=== PATIENT | female | born 1960 | race Caucasian/White ===

== ENCOUNTER 2018-03-12 13:11 | Emergency (ER) | payer BC ==
[2018-03-12 13:29] VITALS: BP 115/65
--- NOTE | 2018-03-12 14:15 | UC ---
UC General HPI - HPI Summary HPI Summary: pt stubbed her L great toe on a step 9 days ago. great toe was bruised. top of L great toe into foot is now red, warm and tender. no fever or hx DM. - History of Current Complaint Chief Complaint: UCTrauma Stated Complaint: SP FALL-RT SHOULDER, LT FOOT PAIN Time Seen by Provider: 03/12/18 13:57 Hx Obtained From: Patient Hx Last Menstrual Period: FES2012, GOING THRU MENOPAUSE Pain Intensity: 3 Associated Signs & Symptoms: Negative: Fever - Allergy/Home Medications Allergies/Adverse Reactions: Allergies Allergy/AdvReac Type Severity Reaction Status Date / Time No Known Allergies Allergy Verified 03/12/18 13:29 Home Medications: Home Medications Atorvastatin* [Lipitor*] 20 mg PO 1700 03/12/18 [History Confirmed 03/12/18] PMH/Surg Hx/FS Hx/Imm Hx Endocrine History: Dyslipidemia - Surgical History Surgical History: Yes Surgery Procedure, Year, and Place: C SECTION - Family History Known Family History: Positive: Non-Contributory - Social History Alcohol Use: Occasionally Substance Use Type: None Substance Use Comment - Amount & Last Used: occasional use- last used 2 days ago Smoking Status (MU): Former Smoker When Did the Patient Quit Smoking/Using Tobacco: 2006 - Immunization History Vaccination Up to Date: Yes Review of Systems All Other Systems Reviewed And Are Negative: Yes Constitutional: Positive: Negative Skin: Positive: Negative Eyes: Positive: Negative ENT: Positive: Negative Respiratory: Positive: Negative Cardiovascular: Positive: Negative Gastrointestinal: Positive: Negative Genitourinary: Positive: Negative Motor: Positive: Negative Neurovascular: Positive: Negative Musculoskeletal: Positive: Other: - L foot pain/swelling Neurological: Positive: Negative Psychological: Positive: Negative Is Patient Immunocompromised?: Yes Physical Exam Triage Information Reviewed: Yes Appearance: Well-Appearing Vital Signs: Initial Vital Signs Temp 97.3 F 03/12/18 13:26 Pulse 59 03/12/18 13:26 Resp 16 03/12/18 13:26 BP 115/65 03/12/18 13:26 Pulse Ox 97 03/12/18 13:26 Vital Signs Reviewed: Yes Eyes: Positive: Conjunctiva Clear ENT: Positive: Normal ENT inspection Neck: Positive: Supple Respiratory: Positive: Lungs clear, Normal breath sounds Cardiovascular: Positive: RRR, No Murmur Abdomen Description: Positive: Nontender, No Organomegaly, Soft Bowel Sounds: Positive: Present Musculoskeletal: Positive: Other: - L foot: brusing under L great proximal toenail. top of great toe into dorsal foot is pink, warm and slightly swollen. area mildly tender. foot has gorss s/v/m function. Neurological: Positive: Alert Psychological: Positive: Age Appropriate Behavior Skin Exam: Normal Diagnostics - Radiology No standard instances Radiology Interpretation Completed By: Radiologist - L foot: QUESTIONABLE LONGITUDINALLY ORIENTED NONDISPLACED FRACTURE OF THE PROXIMAL PHALANX OF THE FIRST DIGIT Course/Dx - Diagnoses Provider Diagnosis: Toe fracture, left, Cellulitis Discharge - Sign-Out/Discharge Documenting (check all that apply): Patient Departure All imaging exams completed and their final reports reviewed: Yes - Discharge Plan Condition: Stable Disposition: HOME Prescriptions: Cephalexin CAP* [Keflex CAP*] 500 mg PO TID 10 Days #30 cap Patient Education Materials: Cellulitis (ED), Toe Fracture (ED) Referrals: Rian Koenig MD [Medical Doctor] - 2 Days Additional Instructions: DIAGNOSIS: FRACTURE L GREAT TOE. CELLULITIS L FOOT - Billing Disposition and Condition Condition: STABLE Disposition: Home
== END 2018-03-12 15:02 | disposition home or self-care (01) ==
LOC: UCCORT 13:11
DX: S92.412A Displaced fracture of proximal phalanx of left great toe, initial encounter for closed fracture (principal); W22.09XA Striking against other stationary object, initial encounter; Y92.9 Unspecified place or not applicable; L03.032 Cellulitis of left toe; E78.5 Hyperlipidemia, unspecified; Z87.891 Personal history of nicotine dependence
CPT/HCPCS: 99203; G0463

== ENCOUNTER 2018-06-30 08:59 | Emergency (ER) | payer BC ==
[2018-06-30 09:18] VITALS: BP 121/77
--- NOTE | 2018-06-30 09:19 | UC ---
Back Pain HPI - HPI Summary HPI Summary: Patient is a 58-year-old female with the onset of spasmodic thoracic back pain that started yesterday. She has taken Flexeril without relief. She denies any neck pain. She denies any radiation of the pain. She has not taken any over- the-counter analgesics. She denies any weakness, numbness, or neck pain. Her pain increases if she tries to do anything with her arms. She noticed this especially attempting to mop yesterday. She has not had any falls. - History of Current Complaint Chief Complaint: UCBackPain Stated Complaint: BACK PAIN Time Seen by Provider: 06/30/18 09:18 Hx Obtained From: Patient Hx Last Menstrual Period: 2012, GOING THRU MENOPAUSE Onset/Duration: Gradual Onset, Lasting Hours Timing: Constant Severity Initially: Moderate Severity Currently: Moderate Pain Intensity: 7 Pain Scale Used: 0-10 Numeric Back Pain: Is Discrete @ - see image Character: Aching, Throbbing, Spasmodic Aggravating Factor(s): Movement, Lifting, Bending Alleviating Factor(s): Rest Associated Signs And Symptoms: Negative: Swelling, Redness, Bruising, Fever, Weakness, Numbness, Tingling, Abdominal Pain, Flank Pain, Bladder Incontinence, Bowel Incontinence, Weight Loss, Pain with Weight Bearing Full Body (No Head): 1 - tender - Allergies/Home Medications Allergies/Adverse Reactions: Allergies Allergy/AdvReac Type Severity Reaction Status Date / Time No Known Allergies Allergy Verified 06/30/18 09:16 Home Medications: Home Medications Cyclobenzaprine TAB* [Flexeril 10 MG TAB*] 10 mg PO BID PRN 06/30/18 [History Confirmed 06/30/18] PMH/Surg Hx/FS Hx/Imm Hx Previously Healthy: Yes - Surgical History Surgical History: Yes Surgery Procedure, Year, and Place: C SECTION - Family History Known Family History: Positive: Hypertension, Diabetes, Other - [place], Non- Contributory - Social History Alcohol Use: Weekly Substance Use Type: Marijuana Substance Use Comment - Amount & Last Used: occasional use- last used 2 days ago Smoking Status (MU): Former Smoker When Did the Patient Quit Smoking/Using Tobacco: 2006 - Immunization History Vaccination Up to Date: Yes Review of Systems All Other Systems Reviewed And Are Negative: Yes Constitutional: Positive: Negative Skin: Positive: Negative Eyes: Positive: Negative ENT: Positive: Negative Respiratory: Positive: Negative Cardiovascular: Positive: Negative Gastrointestinal: Positive: Negative Genitourinary: Positive: Negative Motor: Positive: Negative Musculoskeletal: Positive: Myalgia - thoracic Neurological: Positive: Negative Psychological: Positive: Negative Physical Exam Triage Information Reviewed: Yes Appearance: Well-Appearing, No Pain Distress, Well-Nourished Vital Signs: Initial Vital Signs Temp 97.1 F 06/30/18 09:14 Pulse 61 06/30/18 09:14 Resp 16 06/30/18 09:14 BP 121/77 06/30/18 09:14 Pulse Ox 99 06/30/18 09:14 Eyes: Positive: Conjunctiva Clear ENT: Positive: Hearing grossly normal. Negative: Nasal congestion, Nasal drainage, Tonsillar swelling, Tonsillar exudate, Trismus, Muffled voice, Hoarse voice Neck: Positive: Supple, Nontender, No Lymphadenopathy Respiratory: Positive: Lungs clear, Normal breath sounds, No respiratory distress Cardiovascular: Positive: RRR, No Murmur Musculoskeletal: Positive: ROM Intact, No Edema Neurological: Positive: Alert, Muscle Tone Normal Psychological Exam: Normal Skin Exam: Normal Back Pain Course/Dx - Differential Dx/Diagnosis Provider Diagnosis: Thoracic myofascial strain Discharge - Sign-Out/Discharge Documenting (check all that apply): Patient Departure All imaging exams completed and their final reports reviewed: No Studies - Discharge Plan Condition: Stable Disposition: HOME Patient Education Materials: Thoracic Pain (ED), Thoracic Back Strain (ED) Referrals: Teresa Yarbrough MD [Primary Care Provider] - 5 Days (if not better) - Billing Disposition and Condition Condition: STABLE Disposition: Home
[2018-06-30] MEDS ORDERED: Ketorolac INJ* 30 MG/ML 1 ML VIAL IM ONE (09:30)
== END 2018-06-30 09:49 | disposition home or self-care (01) ==
LOC: UCCORT 08:59
DX: S29.012A Strain of muscle and tendon of back wall of thorax, initial encounter (principal); Z87.891 Personal history of nicotine dependence; X58.XXXA Exposure to other specified factors, initial encounter; Y92.9 Unspecified place or not applicable
CPT/HCPCS: 96372; 99212; G0463; J1885

== ENCOUNTER 2018-10-08 13:20 | Emergency (ER) | payer BC ==
--- OUTSIDE RECORDS SUMMARY | 2018-10-08 13:35 | XMS REPORT | Continuity of Care Document ---
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 Payers Date Identification Numbers Payment Provider Subscriber Policy Number: [id number] [employer] [place] PayID: [id number] [address] [address] [place] [address] Problems Active Problems Provider Date FH: Diabetes mellitus Teresa Yarbrough MD Onset: 02/02/2014 Family history of breast cancer Teresa Yarbrough MD Onset: 05/24/2011 Osteochondropathy Teresa Yarbrough MD Onset: 11/16/2010 Benign neoplasm of colon Teresa Yarbrough MD Onset: 11/16/2010 Vitamin D deficiency Teresa Yarbrough MD Onset: 11/16/2010 Ex-smoker Teresa Yarbrough MD Onset: 05/18/2010 Dyssomnia Teresa Yarbrough MD Onset: 12/07/2006 Mixed hyperlipidemia Teresa Yarbrough MD Onset: 12/07/2006 Degenerative joint disease involving multiple Teresa Yarbrough MD Onset: joints Disorder of bone Teresa Yarbrough MD Onset: 02/04/2015 Actinic keratosis Teresa Yarbrough MD Onset: 08/06/2015 Family History Date Family Member(s) Observation Comments Father due to Aneurysm, Cerebral () - due to Aneurysm - brain bleeds, Father Hypercholesterolemia Father aortic valve disease, replaced. Father due to Stroke () Father due to COPD () Mother due to Cancer, Breast () - (age 60 Years) mets to bone Mother Hypercholesterolemia Mother Hypertension Mother Diabetes Mellitus, II, Mother Mitral Valve Disease, Replaced First Daughter No Current Problems First Brother Diabetes Mellitus, II Second Brother Diabetes Mellitus, II First Sister COPD First Sister Diabetes Mellitus, II. 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 [employer] Tobacco Use Start: 04/16/74 Former Cigarette Smoker started age 15, End: 04/16/07 smoked 1/2 to 1 ppd, quit age 47, in 2007, feels she smoked 1ppd from age 21s through age 47, 1/2 ppd when , calculates to about 28 pack years, not over the 30pack year eligibility for lung cancer screening, reviewed 08/10/17 [facility] [place] Status Reviewed: 03/26/18 Former Cigarette Smoker started age 15, smoked 1/2 to 1 ppd, quit age 47, in 2007, feels she smoked 1ppd from age 20s through age 47, 1/2 ppd when , calculates to about 28 pack years, not over the 30pack year eligibility for lung cancer screening, reviewed 08/10/17 [facility] [place]TOH Use Currently consumes 12 pack/week alcohol Tobacco Use Start: Unknown End: Patient is a former quit again 04/23 Unknown smoker Recreational Drug Use Current Drug User Current Drug User - marijuana, occasionally, advised cessation 02/04/15 Allergies, Adverse Reactions, Alerts Description No Known Drug Allergies Medications Active Medications SIG Qnty Indications Ordering Provider Date Wrist size to fit, M79.641 Teresa Yarbrough, 09/24/2018 Splint/Cock-Up/RIGHT/C wear at night anvas/X-Large Misc Black Cohosh 1 by mouth every Teresa Yarbrough, 08/10/2017 540mg day Capsules Atorvastatin Calcium take 1 tablet 30tabs E78.2 Teresa Yarbrough, 2011 20mg once daily MD Tablets History Medications Potassium Chloride 2 Times A Day 10tabs Unknown 07/12/2018 - Aria ER 07/17/2018 20Meq Tablets ER Green Tea bid Teresa Yarbrough, 08/10/2017 - 150mg MD 07/14/2018 Capsules Green Coffee Horowitz bid Teresa Yarbrough, 08/10/2017 - MD 07/14/2018 400mg Capsules Naproxen 1 by mouth 60tabs M25.561 Teresa Yarbrough, 04/23/2017 - 500mg twice a day MD 07/14/2018 Tablets with food M25.562 Benzonatate 1 by mouth 30caps J06.9 Teresa Yarbrough, 02/27/2017 - 200mg three times a MD 03/09/2017 Capsules day as needed Glucosamine 1 po twice M15.0 Teresa Yarbrough, 08/15/2016 - Chondroitin Triple daily with 16 MD 08/10/2017 Strength oz water 1500/750 Tablets [place]-3 1 po 1-2 times M15.0 Teresa Yarbrough, 08/15/2016 - 1000mg Capsules daily MD 08/10/2017 Metronidazole 1 by mouth 8tabs K57.92 Teresa Yarbrough, 02/07/2016 - 500mg twice a day MD 02/11/2016 Tablets Vitamin D 1 by mouth 1caps E55.9 Teresa Yarbrough, 08/06/2015 - (Ergocalciferol) each month MD 07/14/2018 with 23538Nkig Capsules meat/fat/oil Ciprofloxacin HCL 1 by mouth 20tabs 789.04 Teresa Yarbrough, 12/04/2014 - 500mg twice a day MD 12/14/2014 Tablets Metronidazole 1 by mouth 20tabs 789.04 Teresa Yarbrough, 12/04/2014 - 500mg twice a day MD 12/14/2014 Tablets Amoxicillin/Clavulana 1 by mouth 28tabs 706.2 Bobo Prater, 2014 - te Potassium twice a day 10/26/2014 875-125mg Tablets Fish Oil 1 by mouth OTC 715.09 Teresa Yarbrough, 08/04/2014 - 1000mg every day MD 08/14/2014 Capsules Glucosamine 1 by mouth 180tabs 715.09 Teresa Yarbrough, 08/04/2014 - Chondroitin Complex twice a day MD 08/14/2014 Triple Strength with 16 oz water 1500/1200 Tablets Vitamin D3 Super 1 by mouth OTC E55.9 Teresa Yarbrough, 08/04/2012 - Strength every day with 08/06/2015 2000Unit main meal with Tablets meat/fat/oil Atorvastatin Calcium 1 by mouth 30tabs E78.2 Teresa Yarbrough, 11/20/2011 - every day 03/25/2018 20mg Tablets Eszopiclone per dr yoli [place], [place] Eleuterio 11/14/2006 - 3mg Tablets 05/06/2013 Estroven Weight 1 cap daily Unknown - Management 08/15/2016 Capsules Immunizations CPT Code Status Date Vaccine Lot # [id number] Given 12/23/2012 Tdap (Adacel) Ages 7 And Above Only [id number] Given 10/08/2002 Immunization Td 7 Yrs Or Older [id number] Refused 03/26/2018 Flu Vaccine NOS [id number] Refused 03/26/2018 Shingrix (Shingles) Zoster Vaccine HZV, Recombinant , Subunit, Adj [id number] Refused 08/10/2017 Influenza Virus Vaccine,Quadrivalent,Split,Preserv Free, 0.5mL,Im [address] Refused 02/04/2015 Influenza Virus Vaccine,Quadrivalent,Split,Preserv Free, 0.5mL,[place] [id number] Refused 07/14/2014 Influenza Virus Vaccine,Quadrivalent,Split,Preserv Free, 0.5mL,Im Vital Signs Date Vital Result Comment 09/24/2018 2:40pm Weight 184.00 lb Heart Rate 60 /min BP Systolic 112 mmHg BP Diastolic 68 mmHg Respiratory Rate 17 /min Height 65.5 inches 5'5.50" BMI (Body Mass Index) 30.2 kg/m2 07/15/2018 2:40pm Weight 186.00 lb Heart Rate 62 /min BP Systolic 130 mmHg BP Diastolic 72 mmHg Respiratory Rate 16 /min Height 65.5 inches 5'5.50" O2 % BldC Oximetry 97 % Ra BMI (Body Mass Index) 30.5 kg/m2 03/26/2018 11:05am Body Temperature 97.2 F Weight 182.00 lb Heart Rate 57 /min BP Systolic 118 mmHg BP Diastolic 74 mmHg Respiratory Rate 14 /min Height 65.5 inches 5'5.50" O2 % BldC Oximetry 97 % ra BMI (Body Mass Index) 29.8 kg/m2 08/10/2017 8:31am Weight 184.44 lb Heart Rate 68 /min BP Systolic 108 mmHg BP Diastolic 60 mmHg Respiratory Rate 18 /min Height 66 inches 5'6" BMI (Body Mass Index) 29.8 kg/m2 04/23/2017 2:12pm Weight 191.00 lb Heart Rate 84 /min BP Systolic 128 mmHg BP Diastolic 76 mmHg Respiratory Rate 14 /min Height 65.75 inches 5'5.75" BMI (Body Mass Index) 31.1 kg/m2 02/27/2017 10:55am Body Temperature 98.6 F Weight 192.00 lb Heart Rate 57 /min BP Systolic 126 mmHg BP Diastolic 72 mmHg Respiratory Rate 16 /min Height 65.75 inches 5'5.75" O2 % BldC Oximetry 96 % BMI (Body Mass Index) 31.2 kg/m2 02/07/2017 4:11pm Weight 191.00 lb Heart Rate 74 /min BP Systolic 128 mmHg BP Diastolic 72 mmHg Respiratory Rate 16 /min Height 65.75 inches 5'5.75" BMI (Body Mass Index) 31.1 kg/m2 11/01/2016 4:33pm Body Temperature 97.1 F Weight 191.00 lb Heart Rate 63 /min BP Systolic 128 mmHg BP Diastolic 72 mmHg Respiratory Rate 16 /min Height 65.75 inches 5'5.75" 08/15/16 O2 % BldC Oximetry 97 % BMI (Body Mass Index) 31.1 kg/m2 08/15/2016 8:36am Weight 192.00 lb Heart Rate 76 /min BP Systolic 122 mmHg BP Diastolic 72 mmHg Respiratory Rate 18 /min Height 65.75 inches 5'5.75" 08/15/16 BMI (Body Mass Index) 31.2 kg/m2 02/07/2016 9:46am Body Temperature 97.9 F Weight 191.00 lb Heart Rate 76 /min BP Systolic 126 mmHg BP Diastolic 74 mmHg Respiratory Rate 12 /min Height 65.75 inches 5'5.75" 02/07/16 BMI (Body Mass Index) 31.1 kg/m2 08/06/2015 9:10am Weight 188.38 lb Heart Rate 66 /min BP Systolic 122 mmHg BP Diastolic 72 mmHg Respiratory Rate 18 /min Height 65.75 inches 5'5.75" BMI (Body Mass Index) 30.6 kg/m2 06/21/2015 10:01am Weight 187.00 lb Heart Rate 64 /min BP Systolic 118 mmHg L/Reg BP Diastolic 68 mmHg L/Reg Respiratory Rate 16 /min Height 65.75 inches 5'5.75" BMI (Body Mass Index) 30.4 kg/m2 02/04/2015 8:28am Weight 187.00 lb Heart Rate 66 /min BP Systolic 136 mmHg L/Reg BP Diastolic 82 mmHg L/Reg Respiratory Rate 17 /min Height 65.75 inches 5'5.75" BMI (Body Mass Index) 30.4 kg/m2 12/08/2014 9:01am Weight 186.00 lb Heart Rate 74 /min BP Systolic 120 mmHg BP Diastolic 80 mmHg Respiratory Rate 18 /min Height 65.5 inches 5'5.50" BMI (Body Mass Index) 30.5 kg/m2 12/04/2014 1:02pm Body Temperature 97.3 F Weight 186.00 lb Heart Rate 72 /min BP Systolic 122 mmHg BP Diastolic 80 mmHg Respiratory Rate 18 /min Height 65.5 inches 5'5.50" BMI (Body Mass Index) 30.5 kg/m2 10/12/2014 1:27pm Body Temperature 98.0 F Weight 187.00 lb Heart Rate 68 /min BP Systolic 140 mmHg BP Diastolic 70 mmHg Respiratory Rate 18 /min Height 65.5 inches 5'5.50" BMI (Body Mass Index) 30.6 kg/m2 08/04/2014 8:38am Weight 188.00 lb Same Heart Rate 70 /min BP Systolic 110 mmHg R/Reg BP Diastolic 70 mmHg R/Reg Respiratory Rate 17 /min Height 66 inches 5'6" BMI (Body Mass Index) 30.3 kg/m2 02/02/2014 3:35pm Weight 188.00 lb Heart Rate 72 /min BP Systolic 130 mmHg BP Diastolic 80 mmHg Respiratory Rate 18 /min Height 66 inches 5'6" 09/09/2013 4:37pm Body Temperature 97.5 F Weight 182.00 lb Heart Rate 64 /min BP Systolic 120 mmHg BP Diastolic 60 mmHg Respiratory Rate 18 /min Height 66 inches 5'6" 06/23/2013 8:37am Weight 185.00 lb Heart Rate 64 /min BP Systolic 124 mmHg BP Diastolic 70 mmHg Respiratory Rate 16 /min Height 66 inches 5'6" 01/15/2013 1:00pm Weight 185.00 lb Heart Rate 76 /min BP Systolic 118 mmHg BP Diastolic 74 mmHg Respiratory Rate 18 /min 01/08/2013 10:34am Weight 186.00 lb Heart Rate 76 /min BP Systolic 118 mmHg BP Diastolic 78 mmHg Respiratory Rate 18 /min 12/23/2012 11:13am Weight 186.00 lb Heart Rate 76 /min BP Systolic 122 mmHg BP Diastolic 74 mmHg Respiratory Rate 18 /min Height 65.75 inches 5'5.75" 12/09/2012 1:10pm Weight 185.00 lb Heart Rate 72 /min BP Systolic 118 mmHg BP Diastolic 72 mmHg Respiratory Rate 18 /min 12/02/2012 10:10am Weight 183.00 lb Heart Rate 60 /min BP Systolic 148 mmHg BP Diastolic 78 mmHg Respiratory Rate 17 /min 05/20/2012 9:00am Weight 192.00 lb Heart Rate 60 /min BP Systolic 124 mmHg BP Diastolic 72 mmHg Respiratory Rate 18 /min 02/15/2012 9:31am Weight 190.00 lb Heart Rate 64 /min BP Systolic 118 mmHg BP Diastolic 70 mmHg Respiratory Rate 17 /min 12/04/2011 4:45pm Body Temperature 98.3 F Weight 189.00 lb BP Systolic 100 mmHg BP Diastolic 70 mmHg 11/20/2011 1:20pm Weight 187.00 lb Heart Rate 64 /min BP Systolic 118 mmHg BP Diastolic 72 mmHg Respiratory Rate 15 /min 08/25/2011 8:55am Weight 186.00 lb Heart Rate 64 /min BP Systolic 118 mmHg BP Diastolic 70 mmHg Respiratory Rate 16 /min Height 65.75 inches 5'5.75" (Done On 05/24/11) 07/13/2011 10:08am Weight 189.00 lb Heart Rate 72 /min BP Systolic 106 mmHg BP Diastolic 70 mmHg Respiratory Rate 16 /min Height 65.75 inches 5'5.75" 05/24/2011 8:37am Weight 188.00 lb Heart Rate 78 /min BP Systolic 114 mmHg BP Diastolic 62 mmHg Respiratory Rate 18 /min Height 65.75 inches 5'5.75" 11/16/2010 8:33am Weight 185.00 lb Heart Rate 72 /min BP Systolic 120 mmHg BP Diastolic 72 mmHg Respiratory Rate 18 /min 07/19/2010 8:42am Weight 188.00 lb Heart Rate 72 /min BP Systolic 126 mmHg BP Diastolic 78 mmHg Respiratory Rate 18 /min 05/18/2010 9:01am Weight 190.00 lb Heart Rate 72 /min BP Systolic 112 mmHg BP Diastolic 70 mmHg Respiratory Rate 18 /min Height 66 inches 5'6" 07/08/2009 1:46pm Weight 182.00 lb Heart Rate 72 /min BP Systolic 122 mmHg BP Diastolic 74 mmHg Respiratory Rate 18 /min 05/12/2009 8:30am Weight 188.00 lb Heart Rate 72 /min BP Systolic 118 mmHg BP Diastolic 66 mmHg Respiratory Rate 16 /min Height 66 inches 5'6" 10/28/2008 11:08am Weight 180.00 lb Heart Rate 63 /min BP Systolic 128 mmHg BP Diastolic 80 mmHg Respiratory Rate 16 /min 02/03/2008 3:26pm Body Temperature 99.0 F Weight 176.19 lb Heart Rate 68 /min BP Systolic 118 mmHg BP Diastolic 62 mmHg Respiratory Rate 14 /min Height 66 inches 5'6" 12/02/2007 4:46pm Body Temperature 98.0 F Weight 170.12 lb Heart Rate 72 /min BP Systolic 120 mmHg BP Diastolic 74 mmHg Respiratory Rate 18 /min Height 66 inches 5'6" 10/23/2007 9:03am Weight 175.00 lb Heart Rate 80 /min BP Systolic 118 mmHg BP Diastolic 60 mmHg Respiratory Rate 16 /min Height 66 inches 5'6" 07/31/2007 1:32pm Heart Rate 60 /min BP Systolic 104 mmHg BP Diastolic 66 mmHg Respiratory Rate 16 /min Height 66 inches 5'6" 04/24/2007 8:58am Weight 165.00 lb BP Systolic 100 mmHg BP Diastolic 60 mmHg Height 66 inches 5'6" 03/13/2007 3:36pm Weight 167.00 lb Heart Rate 80 /min BP Systolic 100 mmHg BP Diastolic 50 mmHg Respiratory Rate 18 /min Height 66 inches 5'6" 12/07/2006 2:51pm Weight 176.25 lb Heart Rate 78 /min BP Systolic 110 mmHg BP Diastolic 62 mmHg Respiratory Rate 16 /min Height 66 inches 5'6" Results Test Date Facility Test Result H/L Range Note LDL Cholesterol 09/21/2018 [facility] Cholesterol 191 mg/ dL <200 1, 2 Profile (315)- - Triglycerides 127 mg/dL <150 3 HDL Cholesterol 70 mg/dL >40 4 LDL-Cholesterol 96 mg/dL < 100 5 Laboratory test 09/21/2018 [facility] CK 117 U/L N 26- 192 finding (315)- - Laboratory test 09/21/2018 [facility] Vitamin 32.3 ng/mL 30.0-100.0 6 finding (315)- - D,25-Hydroxy BMP W/ Calc Osmo 08/02/2018 [facility] Sodium 144 mmol/L (136-145) 7 Potassium 4.1 mmol/L (3.6-5.2) Chloride 110 mmol/L High (100-108) Co2 26 mmol/L (22-31) Anion Gap 8 mmol/L (7-16) Urea Nitrogen 13 mg/dL (7-24) Creatinine 0.82 mg/dL (0.60-1.00) BUN/Creat Ratio 15.9 RATIO (10.0-20.0) Glucose 96 mg/dL (70-99) Calcium 9.0 mg/dL (8.4-10.2) GFR >60 ml/min/1.73m2 (>59) GFR ( Amer) >60 ml/min/1.73m2 (>59) GFR Interpretation (SEE NOTE) 8 Calculated Osmo 287 mosm/kg (280-300) 9 Laboratory test finding 07/15/2018 [facility] Potassium 4.1 mmol/L 3.5-5.2 10 TSH 3.67 uIU/mL 0.35-4.94 Free T4 0.96 ng/dL 0.70-1.48 CBS W/Automated Diff 07/12/2018 [facility] White Blood 6.0 K/uL N 3.1-10.7 11 (315)- - Count Red Blood Count 4.08 M/uL N 3.90-5.40 Hemoglobin 12.6 gm/dL N 11.6-15.8 Hematocrit 36.6 % N 36.0-46.1 Mean Cell Volume 89.7 fl N 80.9-99.0 Mean Corpuscular HGB 30.9 pg N 25.9-32.7 Mean Corpuscular HGB Conc 34.4 g/dL High 30.8-34.3 Platelet Count 175 K/uL N 155-360 Red Cell Distri Width SD 40.7 fl N 36-47 Red Cell Distri Width %CV 12.5 % N 11.7-14.4 Mean Platelet Volume 11.0 fl N 8.9-12.4 Neut% 48.8 % N 40.4-72.8 Lymph % 37.0 % N 20.0-42.0 [place] % 11.1 % N 4.3-13.2 Eo% 2.3 % N 0.0-6.6 Bas% 0.5 % N 0.0-1.1 Immature Grans 0.3 % N 0.0-5.0 NRBC % 0.0 /100WBC < 10/ 100 WBC Neut# 2.91 K/uL N 1.8-7.0 Lymph # 2.21 K/uL N 1.0-4.0 [place] # 0.66 K/uL N 0.3-0.9 Eos # 0.14 K/uL N 0.0-0.5 Baso # 0.03 K/uL N 0.0-0.1 Immature Grans Absolute 0.02 K/uL NRBC # 0.00 K/uL Comprehensive Metabolic 07/12/2018 [facility] Glucose 180 mg/dL High 74-106 Panel (315)- - BUN 18 mg/dL N 7-18 Creatinine 1.0 mg/dL N 0.6-1.3 Glom Filtration Rate, Estimate >60 mL/min >60 If >60 mL/min >60 12 BUN/Creat 18.0 ratio Sodium 138 mmol/L N 136-145 Potassium 3.0 mmol/L Low 3.5-5.1 Chloride 107 mmol/L N 98-107 Carbon Dioxide 25 mmol/L N 21-32 Anion Gap 6 mEq/L Low 8-16 Calcium 8.6 mg/dL N 8.5-10.1 Total Protein 7.4 g/dL N 6.4-8.2 Albumin 4.0 g/dL N 3.4-5.0 Globulin 3.4 g/dL N 1.9-4.3 Alb/Glob 1.2 ratio Bilirubin,Total 1.0 mg/dL N 0.2-1.0 Sgot/Ast 20 U/L N 15-37 SGPT/Alt 28 U/L N 12-78 Alkaline Phosphatase 120 U/L High 45-117 Laboratory test 07/12/2018 [facility] Troponin-I < 0.015 ng/mL 13 finding (315)- - Lipid 02/02/2018 [facility] Cholesterol 194 mg/dL < 200 14 (315)- - Triglycerides 88 mg/dL <150 15 HDL Cholesterol 70 mg/dL >40 16 LDL-Cholesterol 106 mg/dL < 100 17 Comprehensive Met 02/02/2018 [facility] Glucose 93 mg/dL N 74-106 Panel-[facility] (315)- - BUN 15 mg/dL N 7-18 Creatinine 1.0 mg/dL N 0.6-1.3 Glom Filtration Rate, Estimate >60 mL/min >60 If >60 mL/min >60 18 BUN/Creat 15.0 ratio Sodium 142 mmol/L N 136-145 Potassium 4.1 mmol/L N 3.5-5.1 Chloride 110 mmol/L High 98-107 Carbon Dioxide 28 mmol/L N 21-32 Anion Gap 4 mEq/L Low 8-16 Calcium 9.0 mg/dL N 8.5-10.1 Total Protein 7.4 g/dL N 6.4-8.2 Albumin 4.0 g/dL N 3.4-5.0 Globulin 3.4 g/dL N 1.9-4.3 Alb/Glob 1.2 ratio Bilirubin,Total 1.2 mg/dL High 0.2-1.0 Sgot/Ast 19 U/L N 15-37 SGPT/Alt 28 U/L N 12-78 Alkaline Phosphatase 93 U/L N 45-117 Laboratory test 02/02/2018 [facility] CK 134 U/L N 26- 192 finding (315)- - Lipid 08/06/2017 [facility] Cholesterol 206 mg/dL High 50-199 19 Triglycerides 176 mg/dL 30-200 HDL 70 mg/dL 35-85 20 Chol/ HDL Ratio 2.9 ratio Low 3.7-5.6 VLDL 35 mg/dL High 2-29 LDL (Calc) 101 mg/dL High 20-99 21 Laboratory test finding 08/06/2017 [facility] Vitamin D 25 36 ng/mL 30-100 22 Hydroxy Comprehensive Met 08/06/2017 [facility] Sodium 144 mmol/L 135-146 23 Panel-[facility]G Potassium 4.2 mmol/L 3.5-5.2 Chloride# 107 mmol/L 97-110 24 Carbon Dioxide 27 mmol/L 24-34 Glucose 86 mg/dL 70-105 BUN 18 mg/dL 6-26 Creatinine 1.0 mg/dL 0.5-1.4 Calcium 9.4 mg/dL 8.5-10.2 Total Protein 6.9 g/dL 6.0-8.0 Albumin 4.5 g/dL 3.6-4.9 Globulin 2.4 g/dL 2.0-3.5 A/G Ratio 1.9 Ratio 1.0-2.2 Total Bilirubin 1.0 mg/dL 0.1-1.3 Alkaline Phosphatase 91 U/L 24-140 Alt 16 U/L 3-42 Ast 17 U/L 8-42 Natacha Egfr >60 >60 25 Non Natacha Egfr 57 Low >60 26 Anion Gap 10 mmol/L 5-15 27 CMP, Comp Metabolic 01/27/2017 [facility] Glucose 92 mg/ dL N 74-106 28 Panel-RL (315)- - BUN 19 mg/dL High 7-18 Creatinine 0.9 mg/dL N 0.6-1.3 Glom Filtration Rate, Estimate >60 mL/min >60 If >60 mL/min >60 29 BUN/Creat 21.1 ratio Sodium 142 mmol/L N 136-145 Potassium 4.1 mmol/L N 3.5-5.1 Chloride 111 mmol/L High 98-107 Carbon Dioxide 25 mmol/L N 21-32 Anion Gap 6 mEq/L Low 8-16 Calcium 9.1 mg/dL N 8.5-10.1 Total Protein 7.5 g/dL N 6.4-8.2 Albumin 4.0 g/dL N 3.4-5.0 Globulin 3.5 g/dL N 1.9-4.3 Alb/Glob 1.1 ratio Bilirubin,Total 0.9 mg/dL N 0.2-1.0 Sgot/Ast 16 U/L N 15-37 SGPT/Alt 23 U/L N 12-78 Alkaline Phosphatase 116 U/L N 45-117 Lipid Panel 01/27/2017 [facility] Cholesterol 212 mg/dL High <200 30 (315)- - Triglycerides 117 mg/dL <150 31 HDL Cholesterol 77 mg/dL >40 32 LDL-Cholesterol 112 mg/dL < 100 33 Laboratory test 01/27/2017 [facility] Vitamin 32.8 ng/mL 30.0-100.0 34 finding (315)- - D,25-Hydroxy Hepatitis C Antibody < 0.1 s/corat 0.0-0.9 35 Comprehensive Metabolic (CMP) 08/01/2016 [facility] Sodium 143 mmol/L 135- 146 36 Potassium 4.5 mmol/L 3.5-5.2 Chloride# 107 mmol/L 97-110 37 Carbon Dioxide 28 mmol/L 24-34 Glucose 94 mg/dL 70-105 BUN 17 mg/dL 6-26 Creatinine 0.9 mg/dL 0.5-1.4 Calcium 9.5 mg/dL 8.5-10.2 Total Protein 6.8 g/dL 6.0-8.0 Albumin 4.5 g/dL 3.6-4.9 Globulin 2.3 g/dL 2.0-3.5 A/G Ratio 2.0 Ratio 1.0-2.2 Total Bilirubin 1.2 mg/dL 0.1-1.3 Alkaline Phosphatase 81 U/L 24-140 Alt 17 U/L 3-42 Ast 15 U/L 8-42 Natacha Egfr >60 >60 38 Non Natacha Egfr >60 >60 39 Anion Gap 13 mmol/L 7-16 40 Lipid 08/01/2016 [facility] Cholesterol 204 mg/dL High 50-199 Triglycerides 115 mg/dL 30-200 HDL 63 mg/dL 35-85 41 Chol/ HDL Ratio 3.2 ratio Low 3.7-5.6 VLDL 23 mg/dL 2-29 LDL (Calc) 118 mg/dL High 20-99 42 Laboratory test finding 08/01/2016 [facility] Vit D,25 Hydroxy 31 ng/mL 31- 100 Hepatitis C Virus Antibody NONREACTIVE Nonreactive Comprehensive Metabolic (CMP) 01/31/2016 [facility] Sodium 139 mmol/L 134- 142 Potassium 4.3 mmol/L 3.5-5.2 Chloride 107 mmol/L 97-109 Carbon Dioxide 24 mmol/L 24-34 Glucose 96 mg/dL 70-105 BUN 15 mg/dL 6-26 Creatinine 0.8 mg/dL 0.5-1.4 Calcium 9.7 mg/dL 8.5-10.2 Total Protein 6.8 g/dL 6.0-8.0 Albumin 4.3 g/dL 3.6-4.9 Globulin 2.5 g/dL 2.0-3.5 A/G Ratio 1.7 Ratio 1.0-2.2 Total Bilirubin 1.3 mg/dL 0.1-1.3 Alkaline Phosphatase 74 U/L 24-140 Alt 16 U/L 3-42 Ast 16 U/L 8-42 Anion Gap 12 mmol/L 6-14 Natacha Egfr >60 >60 43 Non Natacha Egfr >60 >60 44 Lipid 01/31/2016 [facility] Cholesterol 210 mg/dL High 50-199 Triglycerides 161 mg/dL 30-200 HDL 61 mg/dL 35-85 45 Chol/ HDL Ratio 3.4 ratio Low 3.7-5.6 VLDL 32 mg/dL High 2-29 LDL (Calc) 117 mg/dL High 20-99 46 Laboratory test finding 01/31/2016 [facility] Vit D,25 Hydroxy 34 ng/mL 31- 100 CBC With Auto Diff 01/31/2016 [facility] WBC 5.6 K/uL 4.1-11.0 RBC 4.52 M/uL 4.00-5.40 Hemoglobin 14.0 gm/dL 12.0-16.0 Hematocrit 40.6 % 36.0-47.0 MCV 89.7 fL 80.0-97.0 MCH 31.0 pg 27.0-32.0 MCHC 34.6 g/dL 32.0-36.0 RDW 12.6 % 11.5-14.5 PLT Count 180 K/ul 140-400 Neutrophil 52.9 % 35.0-75.0 Lymphocyte 34.0 % 16.0-52.0 Monocyte 9.1 % 2.0-10.0 Eosinophil 3.5 % 0.0-5.0 Basophil 0.5 % 0.0-4.0 Abs Neutrophils 3.0 K/uL 2.1-8.0 Abs Lymphocytes 1.9 K/uL 0.8-5.5 Abs Monocytes 0.5 K/uL 0.1-1.0 Abs Eosinophils 0.2 K/uL 0.0-0.5 Abs Basophils 0.0 K/uL 0.0-0.3 Lipid Panel 08/02/2015 [facility] Cholesterol 249 mg/dL High <200 47 (315)- - Triglycerides 221 mg/dL High <150 48 HDL Cholesterol 65 mg/dL >40 49 LDL-Cholesterol 140 mg/dL < 100 50 CMP, Comp Metabolic 08/02/2015 [facility] Glucose 99 mg/ dL 74-106 Panel (315)- - BUN 21 mg/dL High 7-18 Creatinine 0.9 mg/dL 0.6-1.3 Glom Filtration Rate, Estimate >60 mL/min >60 If >60 mL/min >60 51 BUN/Creat 23.3 ratio Sodium 139 mmol/L 136-145 Potassium 4.1 mmol/L 3.5-5.1 Chloride 106 mmol/L 98-107 Carbon Dioxide 27 mmol/L 21-32 Anion Gap 6 mEq/L Low 8-16 Calcium 9.6 mg/dL 8.5-10.1 Total Protein 7.5 g/dL 6.4-8.2 Albumin 4.0 g/dL 3.4-5.0 Globulin 3.5 g/dL 1.9-4.3 Alb/Glob 1.1 ratio Bilirubin,Total 1.5 mg/dL High 0.2-1.0 Sgot/Ast 17 U/L 15-37 SGPT/Alt 35 U/L 12-78 Alkaline Phosphatase 90 U/L 45-117 Laboratory 08/02/2015 [facility] Vitamin 27.9 ng/mL Low 30.0-100.0 52 test finding (315)- - D,25-Hydroxy Laboratory 06/21/2015 [facility] liche actin 53 test finding [facility] ker Laboratory 02/04/2015 [facility] HPV Laboratory ok 54 test finding [phone] [facility] <SEE NOTE> Laboratory 02/04/2015 [facility] Pap Smear Thin ok, yeast 55 test finding Prep Lipid 01/28/2015 [facility] Cholesterol 212 mg/dL High 50-199 Triglycerides 118 mg/dL 30-200 HDL 58 mg/dL 35-85 56 Chol/ HDL Ratio 3.7 ratio 3.7-5.6 VLDL 24 mg/dL 2-29 LDL (Calc) 130 mg/dL High 20-99 57 Xray 01/28/2015 [facility] Dexa Scan, osteopenia for [address] [place] [address] [phone] Comprehensive 01/28/2015 [facility] Sodium 139 mmol/L 134-1 Metabolic (CMP) 42 Potassium 4.3 mmol/L 3.5-5.2 Chloride 108 mmol/L 97-109 Carbon Dioxide 26 mmol/L 24-34 Glucose 96 mg/dL 70-105 BUN 16 mg/dL 6-26 Creatinine 0.8 mg/dL 0.5-1.4 Calcium 9.5 mg/dL 8.5-10.2 Total Protein 6.8 g/dL 6.0-8.0 Albumin 4.4 g/dL 3.6-4.9 Globulin 2.4 g/dL 2.0-3.5 A/G Ratio 1.8 Ratio 1.0-2.2 Total Bilirubin 1.0 mg/dL 0.1-1.3 Alkaline Phosphatase 83 U/L 24-140 Alt 21 U/L 3-42 Ast 18 U/L 8-42 Anion Gap 9 mmol/L 6-14 Natacha Egfr >60 >60 58 Non Natacha Egfr >60 >60 59 CBC With Auto Diff 01/28/2015 [facility] WBC 5.3 K/uL 4.1-11.0 RBC 4.45 M/uL 4.00-5.40 Hemoglobin 13.7 gm/dL 12.0-16.0 Hematocrit 40.4 % 36.0-47.0 MCV 90.8 fL 80.0-97.0 MCH 30.7 pg 27.0-32.0 MCHC 33.8 g/dL 32.0-36.0 RDW 12.8 % 11.5-14.5 PLT Count 174 K/ul 140-400 Neutrophil 55.4 % 35.0-75.0 Lymphocyte 32.3 % 16.0-52.0 Monocyte 9.2 % 2.0-10.0 Eosinophil 2.6 % 0.0-5.0 Basophil 0.5 % 0.0-4.0 Abs Neutrophils 2.9 K/uL 2.1-8.0 Abs Lymphocytes 1.7 K/uL 0.8-5.5 Abmon 0.5 K/uL 0.1-1.0 Abs Eosinophils 0.1 K/uL 0.0-0.5 Abs Basophils 0.0 K/uL 0.0-0.3 Laboratory test finding 01/28/2015 [facility] Vit D,25 Hydroxy 37 ng/mL 31- 100 CBC With Auto Diff 12/04/2014 [facility] WBC 6.7 K/uL 4.1-11.0 60 RBC 4.51 M/uL 4.00-5.40 Hemoglobin 14.3 gm/dL 12.0-16.0 Hematocrit 41.0 % 36.0-47.0 MCV 90.8 fL 80.0-97.0 MCH 31.6 pg 27.0-32.0 MCHC 34.8 g/dL 32.0-36.0 RDW 13.0 % 11.5-14.5 PLT Count 190 K/ul 140-400 Neutrophil 49.2 % 35.0-75.0 Lymphocyte 37.4 % 16.0-52.0 Monocyte 10.6 % High 2.0-10.0 Eosinophil 2.1 % 0.0-5.0 Basophil 0.7 % 0.0-4.0 Abs Neutrophils 3.3 K/uL 2.1-8.0 Abs Lymphocytes 2.5 K/uL 0.8-5.5 Abmon 0.7 K/uL 0.1-1.0 Abs Eosinophils 0.1 K/uL 0.0-0.5 Abs Basophils 0.0 K/uL 0.0-0.3 Comprehensive Metabolic (CMP) 12/04/2014 [facility] Sodium 140 mmol/L 134- 142 Potassium 4.2 mmol/L 3.5-5.2 Chloride 103 mmol/L 97-109 Carbon Dioxide 28 mmol/L 24-34 Glucose 84 mg/dL 70-105 BUN 18 mg/dL 6-26 Creatinine 0.8 mg/dL 0.5-1.4 Calcium 9.9 mg/dL 8.5-10.2 Total Protein 7.1 g/dL 6.0-8.0 Albumin 4.6 g/dL 3.6-4.9 Globulin 2.5 g/dL 2.0-3.5 A/G Ratio 1.8 Ratio 1.0-2.2 Total Bilirubin 1.2 mg/dL 0.1-1.3 Alkaline Phosphatase 89 U/L 24-140 Alt 16 U/L 3-42 Ast 14 U/L 8-42 Anion Gap 13 mmol/L 6-14 Natacha Egfr >60 >60 61 Non Natacha Egfr >60 >60 62 Laboratory test 10/08/2014 [facility] Polyp Colon hyperpl ,colitis 63 finding (315)- - And/Or Rectum Lipid 08/04/2014 [facility] Cholesterol 219 mg/dL High 50-1 64 99 Triglycerides 149 mg/dL 30-200 HDL 57 mg/dL 35-85 65 Chol/ HDL Ratio 3.8 ratio 3.7-5.6 VLDL 30 mg/dL High 2-29 LDL (Calc) 132 mg/dL High 20-99 66 Comprehensive Metabolic (CMP) 08/04/2014 [facility] Sodium 139 mmol/L 134- 142 Potassium 4.2 mmol/L 3.5-5.2 Chloride 106 mmol/L 97-109 Carbon Dioxide 28 mmol/L 24-34 Glucose 99 mg/dL 70-105 BUN 17 mg/dL 6-26 Creatinine 0.9 mg/dL 0.5-1.4 Calcium 9.5 mg/dL 8.5-10.2 Total Protein 6.9 g/dL 6.0-8.0 Albumin 4.6 g/dL 3.6-4.9 Globulin 2.3 g/dL 2.0-3.5 A/G Ratio 2.0 Ratio 1.0-2.2 Total Bilirubin 1.5 mg/dL High 0.1-1.3 Alkaline Phosphatase 82 U/L 24-140 Alt 17 U/L 3-42 Ast 15 U/L 8-42 Anion Gap 9 mmol/L 6-14 Natacha Egfr >60 >60 67 Non Natacha Egfr >60 >60 68 Laboratory test 08/04/2014 [facility] Vit D,25 Hydroxy 41 ng/mL 31-100 finding Laboratory test 02/13/2014 N2N/CCD Import Cytology Pap See Note finding Laboratory test 12/22/2013 N2N/CCD Import % Baso. 0.5 % 0.0-2.0 finding % Eos. 3.6 % 0.0-4.0 % Lymph 34 % 20-44 % [place] 11.0 % High 2.0-10.0 % Eliezer 51 % 50-70 A/G Ratio 1.6 ratio Low 1.6-2.2 Absolute Baso. 0.0 K/ul 0.0-0.3 Absolute Eos. 0.2 K/ul 0.0-0.5 Absolute Lymph. 1.8 K/ul 0.8-4.8 Absolute [place]. 0.6 K/ul 0.1-1.0 Absolute Eliezer. 2.75 K/ul 2.05-7.63 Albumin 4.6 g/dL 3.5-5.0 Alk. Phos. 93.0 U/L 30.0-126.0 Alt 20.0 U/L 9.0-52.0 Anion Gap 10.0 mmol/L 10.0-20.0 Ast 17.0 U/L 14.0-36.0 BUN 18.0 mg/dL 7.0-18.0 BUN/Creat Ratio 22.5 ratio High 12.0-20.0 Calcium 9.8 mg/dL 8.7-10.5 Chloride 107.0 mmol/L 98.0-107.0 Co2 25.0 mmol/L 22.0-30.0 Creatinine-Serum 0.8 mg/dL 0.7-1.2 Globulin 2.9 g/dL 2.7-4.3 Glucose 97.0 mg/dL 75.0-110.0 HCT 42.1 % 37.0-51.0 HGB 14.5 Gm/dl 12.0-16.0 MCH 30.7 pg 26.0-32.0 MCHC 34.5 g/dL 31.0-36.0 MCV 89.0 Fl 80.0-97.0 MPV 8.9 fL 6.0-10.0 PLT 178 K/ul 140-440 Potasium 4.3 mmol/L 3.6-5.0 RBC 4.7 M/ul 4.2-6.3 RDW 12.4 % 11.5-14.5 Sodium 142.0 mmil/L 137.0-145.0 Total Bilirubin 1.3 mg/dL 0.2-1.3 Total Protein 7.5 g/dL 6.3-8.2 Vitamin D 35.7 ng/mL 30.0-100.0 WBC 5.4 K/ul 4.1-10.9 eGFR 80.3 mi/minper1.73 69 Lipid Panel 12/22/2013 N2N/CCD Import Chol/HDL Ratio 3.4 ratio Cholesterol 218.0 mg/dL High 50.0-199.0 HDL 65.0 mg/dL 29.0-86.0 LDL, Calculated 123.6 mg/dL 20.0-129.0 Triglycerides 147.0 mg/dL 30.0-249.0 vLDL 29.4 ng/dL Laboratory test finding 06/18/2013 N2N/CCD Import A/G Ratio 1.8 ratio 1.6-2.2 Albumin 4.4 g/dL 3.5-5.0 Alk. Phos. 87.0 U/L 30.0-126.0 Alt 16.0 U/L 9.0-52.0 Anion Gap 8.0 mmol/L Low 10.0-20.0 Ast 18.0 U/L 14.0-36.0 BUN 21.0 mg/dL High 7.0-18.0 BUN/Creat Ratio 23.3 ratio High 12.0-20.0 Calcium 9.4 mg/dL 8.7-10.5 Chloride 107.0 mmol/L 98.0-107.0 Co2 26.0 mmol/L 22.0-30.0 Creatinine-Serum 0.9 mg/dL 0.7-1.2 Globulin 2.5 g/dL Low 2.7-4.3 Glucose 96.0 mg/dL 75.0-110.0 Potasium 4.3 mmol/L 3.6-5.0 Sodium 141.0 mmil/L 137.0-145.0 Total Bilirubin 1.5 mg/dL High 0.2-1.3 Total Protein 6.9 g/dL 6.3-8.2 Vitamin D 24.3 ng/mL Low 30.0-100.0 eGFR 68.5 mi/minper1.73 70 Lipid Panel 06/18/2013 N2N/CCD Import Chol/HDL Ratio 4.4 ratio Cholesterol 239.0 mg/dL High 50.0-199.0 HDL 54.0 mg/dL 29.0-86.0 LDL, Calculated 163.4 mg/dL High 20.0-129.0 Triglycerides 108.0 mg/dL 30.0-249.0 vLDL 21.6 ng/dL Laboratory test finding 11/12/2012 N2N/CCD Import A/G Ratio 1.6 ratio Low 1.6-2.2 Albumin 4.4 g/dL 3.5-5.0 Alk. Phos. 92.0 U/L 30.0-126.0 Alt 22.0 U/L 9.0-52.0 Anion Gap 14.0 mmol/L 10.0-20.0 Ast 20.0 U/L 14.0-36.0 BUN 18.0 mg/dL 7.0-18.0 BUN/Creat Ratio 20.0 ratio 12.0-20.0 Calcium 9.8 mg/dL 8.7-10.5 Chloride 107.0 mmol/L 98.0-107.0 Co2 20.0 mmol/L Low 22.0-30.0 Creatinine-Serum 0.9 mg/dL 0.7-1.2 Globulin 2.8 g/dL 2.7-4.3 Glucose 96.0 mg/dL 75.0-110.0 Potasium 4.2 mmol/L 3.6-5.0 Sodium 141.0 mmil/L 137.0-145.0 Total Bilirubin 1.1 mg/dL 0.2-1.3 Total Protein 7.2 g/dL 6.3-8.2 eGFR 70.6 mi/minper1.73 71 Lipid Panel 11/12/2012 N2N/CCD Import Chol/HDL Ratio 3.7 ratio Cholesterol 216.0 mg/dL High 50.0-199.0 HDL 58.0 mg/dL 29.0-86.0 LDL, Calculated 128.6 mg/dL 20.0-129.0 Triglycerides 147.0 mg/dL 30.0-249.0 vLDL 29.4 ng/dL Laboratory test finding 05/13/2012 N2N/CCD Import A/G Ratio 1.5 ratio Low 1.6-2.2 Albumin 4.2 g/dL 3.5-5.0 Alk. Phos. 94.0 U/L 30.0-126.0 Alt 17.0 U/L 9.0-52.0 Anion Gap 11.0 mmol/L 10.0-20.0 Ast 18.0 U/L 14.0-36.0 BUN 18.0 mg/dL 7.0-18.0 BUN/Creat Ratio 20.0 ratio 12.0-20.0 CK 91 U/L 26-190 72 Calcium 9.1 mg/dL 8.7-10.5 Chloride 106.0 mmol/L 98.0-107.0 Co2 23.0 mmol/L 22.0-30.0 Creatinine-Serum 0.9 mg/dL 0.7-1.2 Globulin 2.8 g/dL 2.7-4.3 Glucose 100.0 mg/dL 75.0-110.0 Potasium 4.5 mmol/L 3.6-5.0 Sodium 140.0 mmil/L 137.0-145.0 73 Total Bilirubin 1.7 mg/dL High 0.2-1.3 Total Protein 7.0 g/dL 6.3-8.2 eGFR 69.6 mi/minper1.7 Lipid Panel 05/13/2012 N2N/[facility] Standard Import Chol/HDL Ratio 3.3 ratio Cholesterol 207.0 mg/dL High 50.0-199.0 HDL 62.0 mg/dL 29.0-86.0 LDL, Calculated 120.4 mg/dL 20.0-129.0 Triglycerides 123.0 mg/dL 30.0-249.0 vLDL 24.6 ng/dL Laboratory test finding 01/02/2012 [facility] Standard Import Alt 24 U/L 9-52 74 Ast 23 U/L 14-36 CK 87 U/L 26-190 75 Lipid Panel 01/02/2012 [facility] Standard Import Chol/HDL Ratio 3.0 Cholesterol 182 mg/dL 50-199 HDL Cholesterol 60 mg/dL 29-86 LDL 100 mg/dL 20-129 76 Triglycerides 108 mg/dL 30-249 VLDL Cholesterol 22 mg/dL Laboratory test finding 11/09/2011 [facility] Standard Import A/G Ratio 1.4 1.0-2.2 77 Absolute Basophils 0.056 K/ul 0.0-0.3 Absolute Eosinophils 0.164 K/ul 0.0-0.5 Absolute Lymphocytes 1.86 K/ul 0.8-4.8 Absolute Monocytes 0.605 K/ul 0.1-1.0 Absolute Neutrophils 2.72 K/ul 2.05-7.63 Albumin 4.4 g/dL 3.5-5.0 Alkaline Phosphatase 108 U/L 30-126 Alt 25 U/L 9-52 Ast 25 U/L 14-36 BUN 17 mg/dL 7-18 BUN/CR Ratio 21.2 Ratio High 12-20 Basophil 1.0 % 0-2 Calcium 9.7 mg/dL 8.7-10.5 Carbon Dioxide 27 mmol/L 22-30 Chloride 105 mmol/L 98-107 Creatinine, Serum 0.8 mg/dL 0.7-1.2 Eosinophil 3.0 % 0-4 Globulin 3.1 g/dL 2.7-4.3 Glucose 94 mg/dL 65-105 Hematocrit 42.2 % 37.0-51.0 Hemoglobin 14.1 GM/dl 12.0-16.0 Lymphocytes 34.4 % 20-44 MCH 30.4 pg 26.0-32.0 MCHC 33.5 g/dL 31.0-36.0 MCV 91 FL 80-97 Monocytes 11.2 % High 2-10.0 Neutrophils 50.4 % 50-70 Platelet Count 198 K/ul 140-440 Potassium 4.7 mmol/L 3.6-5.0 RBC 4.65 M/ul 4.2-6.3 RDW 11.6 % 11.5-14.5 Sodium 141 mmol/L 137-145 Total Bilirubin 1.2 mg/dL 0.2-1.3 Total Protein 7.5 g/dL 6.3-8.2 WBC 5.4 K/ul 4.1-10.9 Lipid Panel 11/09/2011 N2N/[facility] Standard Import Chol/HDL Ratio 3.5 Cholesterol 268 mg/dL High 50-199 HDL Cholesterol 75 mg/dL 29-86 LDL 174 mg/dL High 20-129 78 Triglycerides 95 mg/dL 30-249 VLDL Cholesterol 19 mg/dL Laboratory test finding 11/09/2011 N2N/[facility] Standard Import CK 107 U/L 26-190 79 Vitamin D,25-Hydroxy 40.6 ng/mL 30.0-100.0 80 Laboratory test finding 08/17/2011 [facility] Standard Import Alt 25 U/L 9-52 81 Anion Gap 15 mmol/L 10-20 Ast 23 U/L 14-36 BUN 17 mg/dL 7-18 BUN/CR Ratio 20.2 Ratio High 12-20 Calcium 9.4 mg/dL 8.7-10.5 Carbon Dioxide 26 mmol/L 22-30 Chloride 106 mmol/L 98-107 Creatinine, Serum 0.9 mg/dL 0.7-1.2 Glucose 90 mg/dL 65-105 Hemoglobin A1c 5.4 % 4.1-6.5 Potassium 4.3 mmol/L 3.6-5.0 Sodium 142 mmol/L 137-145 Lipid Panel 08/17/2011 N2N/[facility] Standard Import Chol/HDL Ratio 3.6 Cholesterol 235 mg/dL High 50-199 HDL Cholesterol 65 mg/dL 29-86 LDL 147 mg/dL High 20-129 82 Triglycerides 114 mg/dL 30-249 VLDL Cholesterol 23 mg/dL Laboratory test finding 08/17/2011 [facility]2N/[facility] Standard Import CK 104 U/L 26-190 83 Laboratory test finding 07/06/2011 N2N/[facility] Standard Import Alt 29 U/L 9-52 84 Ast 27 U/L 14-36 CK 157 U/L 26-190 85 Lipid Panel 07/06/2011 N2N/CCD Import Chol/HDL Ratio 4.0 Cholesterol 306 mg/dL High 50-199 HDL Cholesterol 75 mg/dL 29-86 LDL 194 mg/dL High 20-129 86 Triglycerides 187 mg/dL 30-249 VLDL Cholesterol 37 mg/dL Laboratory test finding 05/17/2011 N2N/CCD Import A/G Ratio 1.2 1.0-2.2 87 Albumin 4.1 g/dL 3.5-5.0 Alkaline Phosphatase 97 U/L 30-126 Alt 21 U/L 9-52 Ast 24 U/L 14-36 BUN 20 mg/dL High 7-18 BUN/CR Ratio 23.5 Ratio High 12-20 Calcium 9.7 mg/dL 8.7-10.5 Carbon Dioxide 28 mmol/L 22-30 Chloride 102 mmol/L 98-107 Creatinine, Serum 0.9 mg/dL 0.7-1.2 Globulin 3.3 g/dL 2.7-4.3 Glucose 89 mg/dL 65-105 Potassium 4.7 mmol/L 3.6-5.0 Sodium 141 mmol/L 137-145 Total Bilirubin 1.1 mg/dL 0.2-1.3 Total Protein 7.4 g/dL 6.3-8.2 Lipid Panel 05/17/2011 N2N/CCD Import Chol/HDL Ratio 4.1 Cholesterol 271 mg/dL High 50-199 HDL Cholesterol 65 mg/dL 29-86 LDL 177 mg/dL High 20-129 88 Triglycerides 144 mg/dL 30-249 VLDL Cholesterol 29 mg/dL Laboratory test 03/23/2011 N2N/CCD Import Polyp Colon See Note hyperplastic polyp 89 finding And/Or Rectum Laboratory test 11/10/2010 N2N/CCD Import A/G Ratio 1.4 1.0-2.2 90 finding Albumin 4.3 g/dL 3.5-5.0 Alkaline Phosphatase 102 U/L 30-126 Alt 28 U/L 9-52 Ast 21 U/L 14-36 BUN 17 mg/dL 7-18 BUN/CR Ratio 18.7 Ratio 12-20 Calcium 9.8 mg/dL 8.7-10.5 Carbon Dioxide 29 mmol/L 22-30 Chloride 103 mmol/L 98-107 Creatinine, Serum 0.9 mg/dL 0.7-1.2 Globulin 3.1 g/dL 2.7-4.3 Glucose 96 mg/dL 65-105 Potassium 4.7 mmol/L 3.6-5.0 Sodium 147 mmol/L High 137-145 Total Bilirubin 1.1 mg/dL 0.2-1.3 Total Protein 7.4 g/dL 6.3-8.2 Lipid Panel 11/10/2010 N2N/[facility] Standard Import Chol/HDL Ratio 3.2 Cholesterol 227 mg/dL High 50-199 HDL Cholesterol 69 mg/dL 29-86 LDL 136 mg/dL High 20-129 91 Triglycerides 110 mg/dL 30-249 VLDL Cholesterol 22 mg/dL Laboratory test finding 11/10/2010 N2N/[facility] Standard Import CK 91 U/L 26-190 92 Vitamin D,25-Hydroxy 46.0 ng/mL 32.0-100.0 93 Laboratory test finding 07/06/2010 [facility] Standard Import Alt 20 U/L 9-52 94 Ast 23 U/L 14-36 CK 102 U/L 26-190 95 Lipid Panel 07/06/2010 N2N/[facility] Standard Import Chol/HDL Ratio 3.7 Cholesterol 235 mg/dL High 50-199 HDL Cholesterol 62 mg/dL 29-86 LDL 151 mg/dL High 20-129 96 Triglycerides 110 mg/dL 30-249 VLDL Cholesterol 22 mg/dL Laboratory test 05/11/2010 [facility] Standard Import Vitamin 27.3 ng/mL Low 32.0- 100.0 97 finding D,25-Hydroxy Laboratory test 05/11/2010 [facility] Standard Import A/G Ratio 1.5 1.0-2.2 98 finding Absolute Basophils 0.054 K/ul 0.0-0.3 Absolute Eosinophils 0.166 K/ul 0.0-0.5 Absolute Lymphocytes 1.84 K/ul 0.8-4.8 Absolute Monocytes 0.723 K/ul 0.1-1.0 Absolute Neutrophils 3.46 K/ul 2.05-7.63 Albumin 4.4 g/dL 3.5-5.0 Alkaline Phosphatase 87 U/L 30-126 Alt 27 U/L 9-52 Ast 20 U/L 14-36 BUN 17 mg/dL 7-18 BUN/CR Ratio 19.4 Ratio 12-20 Basophil 0.9 % 0-2 Calcium 10.0 mg/dL 8.7-10.5 Carbon Dioxide 27 mmol/L 22-30 Chloride 105 mmol/L 98-107 Creatinine, Serum 0.9 mg/dL 0.7-1.2 Eosinophil 2.7 % 0-4 Globulin 3.0 g/dL 2.7-4.3 Glucose 86 mg/dL 65-105 Hematocrit 41.5 % 37.0-51.0 Hemoglobin 14.0 GM/dl 12.0-16.0 Lymphocytes 29.5 % 20-44 MCH 31.5 pg 26.0-32.0 MCHC 33.9 g/dL 31.0-36.0 MCV 93 FL 80-97 Monocytes 11.6 % High 2-10.0 Neutrophils 55.4 % 50-70 Platelet Count 192 K/ul 140-440 Potassium 4.5 mmol/L 3.6-5.0 RBC 4.46 M/ul 4.2-6.3 RDW 12.6 % 11.5-14.5 Sodium 142 mmol/L 137-145 TSH 3.845 uIU/ml 0.50-6.00 Total Bilirubin 1.5 mg/dL High 0.2-1.3 Total Protein 7.4 g/dL 6.3-8.2 WBC 6.2 K/ul 4.1-10.9 Lipid Panel 05/11/2010 N2N/CCD Import Chol/HDL Ratio 4.2 Cholesterol 262 mg/dL High 50-199 HDL Cholesterol 61 mg/dL 29-86 LDL 174 mg/dL High 20-129 99 Triglycerides 133 mg/dL 30-249 VLDL Cholesterol 27 mg/dL Laboratory test finding 07/08/2009 N2N/CCD Import Yesica Species See Note 100 Gardnerella Vaginalis See Note 101 Genital Culture See Note 102 Gram Stain See Note 103 Trichomonas Vaginalis See Note 104 Dna Probe N. Gono & 07/08/2009 N2N/CCD Import Dna Probe For See Note 105 C. Trach. Chlamydia Trac. Dna Probe For N. Gonorrhoeae See Note 106 Dna Probe N. Gono + C. Trach. See Note 107 Laboratory test finding 07/08/2009 N2N/CCD Import A/G Ratio 1.4 1.0-2.2 108 Albumin 4.3 g/dL 3.5-5.0 Alkaline Phosphatase 97 U/L 30-126 Alt 15 U/L 9-52 Ast 20 U/L 14-36 BUN 16 mg/dL 7-18 BUN/CR Ratio 18.7 Ratio 12-20 Calcium 9.7 mg/dL 8.7-10.5 Carbon Dioxide 28 mmol/L 22-30 Chloride 101 mmol/L 98-107 Creatinine, Serum 0.9 mg/dL 0.7-1.2 Globulin 3.1 g/dL 2.7-4.3 Glucose 131 mg/dL High 65-105 Potassium 3.9 mmol/L 3.6-5.0 Sodium 141 mmol/L 137-145 TSH 5.472 uIU/ml 0.50-6.00 Total Bilirubin 0.9 mg/dL 0.2-1.3 Total Protein 7.3 g/dL 6.3-8.2 Laboratory test finding 07/08/2009 N2N/CCD Import Atypical Lymph% 4 % 0- 7 Eosinophil% 1 % 0-5 Estradiol,Serum 31 pg/mL 109 FSH 7.2 mIU/mL 110 Hematocrit 40.2 % 36.0-46.1 Hemoglobin 13.6 gm/dL 11.6-15.8 Luteinizing Hormone 3.7 mIU/mL 111 Lymph% 9 % Low 17-56 Mean Cell Volume 92.2 fl 80.9-99.0 Mean Corpuscular HGB 31.2 pg 25.9-32.7 Mean Corpuscular HGB Conc 33.8 g/dL 30.8-34.3 Mean Platelet Volume 11.1 fL 8.9-12.4 Monocyte% 4 % 0-10 Neutrophils% 82 % High 33-73 Platelet Count 218 K/uL 155-360 Platelet Estimate Normal RBC Morphology Normal Red Blood Count 4.36 M/uL 3.90-5.40 Red Cell Distri Width %CV 12.6 % 11.7-14.4 Total Cells Counted 100 #CELLS White Blood Count 9.8 K/uL 3.1-10.7 Laboratory test 05/05/2009 N2N/CCD Import Absolute 0.074 K/ul 0.0-0.3 112 finding Basophils Absolute Eosinophils 0.128 K/ul 0.0-0.5 Absolute Lymphocytes 2.07 K/ul 0.8-4.8 Absolute Monocytes 0.682 K/ul 0.1-1.0 Absolute Neutrophils 3.72 K/ul 2.05-7.63 Alt 18 U/L 9-52 Anion Gap 11 mmol/L 10-20 Ast 21 U/L 14-36 BUN 14 mg/dL 7-18 BUN/CR Ratio 15.2 Ratio 12-20 Basophil 1.1 % 0-2 Calcium 9.8 mg/dL 8.7-10.5 Carbon Dioxide 29 mmol/L 22-30 Chloride 104 mmol/L 98-107 Creatinine, Serum 0.9 mg/dL 0.7-1.2 Eosinophil 1.9 % 0-4 Glucose 89 mg/dL 65-105 Hematocrit 42.1 % 37.0-51.0 Hemoglobin 14.1 GM/dl 12.0-16.0 Lymphocytes 31.0 % 20-44 MCH 30.2 pg 26.0-32.0 MCHC 33.4 g/dL 31.0-36.0 MCV 90 FL 80-97 Monocytes 10.2 % High 2-10.0 Neutrophils 55.7 % 50-70 Platelet Count 230 K/ul 140-440 Potassium 4.5 mmol/L 3.6-5.0 RBC 4.66 M/ul 4.2-6.3 RDW 12.2 % 11.5-14.5 Sodium 140 mmol/L 137-145 WBC 6.7 K/ul 4.1-10.9 Lipid Panel 05/05/2009 N2N/CCD Import Chol/HDL Ratio 3.5 Cholesterol 249 mg/dL High 50-199 HDL Cholesterol 71 mg/dL 29-86 LDL 157 mg/dL High 20-129 113 Triglycerides 104 mg/dL 30-249 VLDL Cholesterol 21 mg/dL Laboratory test 10/28/2008 N2N/CCD Import C-Reactive 2.14 mg/L 0.00- 3.00 114 finding Protein,Cardiac TSH 1.892 uIU/ml 0.50-6.00 Laboratory test 10/15/2008 N2N/CCD Import Absolute 0.053 K/ul 0.0-0.3 115 finding Basophils Absolute Eosinophils 0.157 K/ul 0.0-0.5 Absolute Lymphocytes 1.76 K/ul 0.8-4.8 Absolute Monocytes 0.592 K/ul 0.1-1.0 Absolute Neutrophils 2.98 K/ul 2.05-7.63 Alt 12 U/L 9-52 Anion Gap 14 mmol/L 10-20 Ast 20 U/L 14-36 BUN 15 mg/dL 7-18 BUN/CR Ratio 16.6 Ratio 12-20 Basophil 1.0 % 0-2 Calcium 9.6 mg/dL 8.7-10.5 Carbon Dioxide 25 mmol/L 22-30 Chloride 106 mmol/L 98-107 Creatinine, Serum 0.9 mg/dL 0.7-1.2 Eosinophil 2.8 % 0-4 Glucose 87 mg/dL 65-105 Hematocrit 42.7 % 37.0-51.0 Hemoglobin 14.1 GM/dl 12.0-16.0 Lymphocytes 31.8 % 20-44 MCH 30.3 pg 26.0-32.0 MCHC 33.1 g/dL 31.0-36.0 MCV 92 FL 80-97 Monocytes 10.7 % High 2-10.0 Neutrophils 53.7 % 50-70 Platelet Count 195 K/ul 140-440 Potassium 4.5 mmol/L 3.6-5.0 RBC 4.67 M/ul 4.2-6.3 RDW 12.6 % 11.5-14.5 Sodium 140 mmol/L 137-145 WBC 5.6 K/ul 4.1-10.9 Lipid Panel 10/15/2008 N2N/[facility] Standard Import Chol/HDL Ratio 4.4 Cholesterol 278 mg/dL High 50-199 HDL Cholesterol 62 mg/dL 29-86 LDL 190 mg/dL High 20-129 116 Triglycerides 130 mg/dL 30-249 VLDL Cholesterol 26 mg/dL Laboratory test finding 10/16/2007 N2N/[facility] Standard Import Alt 14 U/L 9-52 117 Anion Gap 14 mmol/L 10-20 Ast 21 U/L 14-36 BUN 15 mg/dL 7-18 BUN/CR Ratio 16.8 Ratio 12-20 Calcium 9.4 mg/dL 8.7-10.5 Carbon Dioxide 25 mmol/L 22-30 Chloride 106 mmol/L 98-107 Creatinine, Serum 0.9 mg/dL 0.7-1.2 Glucose 87 mg/dL 65-105 Potassium 4.5 mmol/L 3.6-5.0 Sodium 141 mmol/L 137-145 Lipid Panel 10/16/2007 N2N/[facility] Standard Import Chol/HDL Ratio 3.1 Cholesterol 217 mg/dL High 50-199 HDL Cholesterol 68 mg/dL 29-86 LDL 131 mg/dL High 20-129 118 Triglycerides 89 mg/dL 30-249 VLDL Cholesterol 18 mg/dL Laboratory test finding 07/31/2007 [facility]2N/[facility] Standard Import Wet Prep Skin no hyphae Lipid Panel 04/17/2007 N2N/[facility] Standard Import Chol/HDL Ratio 3.6 119 Cholesterol 225 mg/dL High 50-199 HDL Cholesterol 62 mg/dL 29-86 LDL 148 mg/dL High 20-129 120 Triglycerides 74 mg/dL 30-249 VLDL Cholesterol 15 mg/dL Laboratory test finding 04/17/2007 N2N/CCD Import Alt 35 U/L 9-52 Ast 24 U/L 14-36 Lipid Panel 02/28/2007 N2N/CCD Import Chol/HDL Ratio 4.1 121 Cholesterol 252 mg/dL High 50-199 HDL Cholesterol 61 mg/dL 29-86 LDL 172 mg/dL High 20-129 122 Triglycerides 97 mg/dL 30-249 VLDL Cholesterol 19 mg/dL Laboratory test finding 02/28/2007 N2N/CCD Import A/G Ratio 1.6 1.0-2.2 Albumin 4.6 g/dL 3.5-5.0 Alkaline Phosphatase 89 U/L 38-126 Alt 28 U/L 9-52 Ast 24 U/L 14-36 BUN 14 mg/dL 7-18 BUN/CR Ratio 16.0 Ratio 12-20 Calcium 9.5 mg/dL 8.7-10.5 Carbon Dioxide 28 mmol/L 22-30 Chloride 104 mmol/L 98-107 Creatinine, Serum 0.9 mg/dL 0.7-1.2 Globulin 2.9 g/dL 2.7-4.3 Glucose 86 mg/dL 65-105 Potassium 4.0 mmol/L 3.6-5.0 Sodium 140 mmol/L 137-145 Total Bilirubin 1.8 mg/dL High 0.2-1.3 Total Protein 7.5 g/dL 6.3-8.2 Laboratory test 12/07/2006 N2N/[facility] Standard Import Culture Urine No Growth: Final 123 finding <See Note> Urine Amorph Sediment Large Negative Urine Bacteria Very Few None Seen Urine Epithelial Cells Few None Seen Urine RBC 2-5 Negative r Urine Uric Acid Crystals Few None Seen Urine WBC 0-2 Negative w Laboratory test finding 12/07/2006 N2N/CCD Import A/G Ratio 1.6 1.0-2.2 124 Albumin 4.6 g/dL 3.5-5.0 Alkaline Phosphatase 98 U/L 38-126 Alt 27 U/L 9-52 Ast 26 U/L 14-36 BUN 18 mg/dL 7-18 BUN/CR Ratio 18.1 Ratio 12-20 Bas% 0.5 % 0.1-1.0 Baso # 0.0 K/uL Low 0.1-0.2 Calcium 9.7 mg/dL 8.7-10.5 Carbon Dioxide 22 mmol/L 22-30 Chloride 107 mmol/L 98-107 Creatinine, Serum 1.0 mg/dL 0.7-1.2 Eo% 2.6 % 0.0-5.0 Eos # 0.2 K/uL 0.0-0.5 Globulin 2.9 g/dL 2.7-4.3 Glucose 80 mg/dL 65-105 Hematocrit 41.0 % 34.0-46.0 Hemoglobin 14.5 gm/dL 11.5-15.5 Aramis# 0.3 0.0-1.5 Aramis% 3.2 % 0.0-4.0 Lymph # 2.6 K/uL 1.2-4.0 Lymph % 29.9 % 17.0-56.0 Mean Cell Volume 91.9 fL 80.0-96.0 Mean Corpuscular HGB 32.4 pg 27.0-33.0 Mean Corpuscular HGB Conc 35.3 g/dL 31.7-36.0 Mean Platelet Volume 8.2 fl 6.6-10.6 [place] # 0.6 K/uL 0.0-0.6 [place] % 7.0 % 0.0-10.0 Neut# 4.9 K/uL 1.8-7.0 Neut% 56.7 % 33.0-73.0 Platelet Count 187 K/uL 150-400 Potassium 4.1 mmol/L 3.6-5.0 Red Blood Count 4.46 M/uL 3.90-5.20 Red Cell Distri Width %CV 12.5 % 11.6-15.8 Sodium 140 mmol/L 137-145 TSH 3.500 uIU/ml 0.50-6.00 Total Bilirubin 1.2 mg/dL 0.2-1.3 Total Protein 7.5 g/dL 6.3-8.2 White Blood Count 8.6 K/uL 3.4-10.5 1 E78.2 Z01.419 E55.9 2 Reference Guidelines*: Desirable: ........... < 200 mg/dL Borderline High: ..... 200-239 mg/dL High: ................ >=240 mg/dL * The National Cholesterol Education Program (NCEP) 3 Reference Guidelines*: Normal: ............. < 150 mg/dL Borderline High: .... 150-199 mg/dL High: ............... 200-499 mg/dL Very High: .......... > 500 mg/dL * Source: National Cholesterol Education Program (NCEP) 4 Reference Guidelines*: Low HDL: ..... < 40 mg/dL Normal: ..... 40-60 mg/dL Desirable: ... > 60 mg/dL *The National Cholesterol Education Program(NCEP) 5 Reference Guidelines*: Optimal:........... <100 mg/dL Near Optimal....... 100-129 mg/dL Borderline High.... 130-159 mg/dL High............... 160-189 mg/dL Very High.......... >=190 mg/dL * Source: National Cholesterol Education Program (NCEP) 6 Vitamin D deficiency has been defined by the [place] of [employer] and an Endocrine Society practice guideline as a level of serum 25-OH vitamin D less than 20 ng/mL (1,2). The Endocrine Society went on to further define vitamin D insufficiency as a level between 21 and 29 ng/mL (2). 1. IOM ([place] of [employer]). 2010. Dietary reference intakes for calcium and D. [place]: The National Academies Press. 2. Marian MF, Carey [place], bAby PAYTON, et al. Evaluation, treatment, and prevention of vitamin D deficiency: an Endocrine Society clinical practice guideline. JCEM. 2010; 96(7):1911-30. Performed at: RN - [facility] [address] [id number] Manager Eligibility: Lola Agarwal MD, Phone: [phone] in 3 weeks , fu low pottasium, stopping meds 07/17 8 NORMAL KIDNEY FUNCTION OR MILD DISEASE - GFR >OR=60 CHRONIC KIDNEY DISEASE - GFR 15 - 59 RENAL FAILURE - GFR <15 Est. GFR calculation based on the MDRD study equation, which assumes a steady state for creatinine. Est. GFR should not be used for medication dosing. 9 Unless otherwise specified, testing performed by [facility] [address] [place] [id number] now letter 11 HIGH BP, JSS NOREEN 12 Note: Persistent reduction for 3 months or more in an eGFR <60 mL/min/1.73 m2 defines CKD. Patients with eGFR values >/=60 mL/min/1.73 m2 may also have CKD if evidence of persistent proteinuria is present. The original MDRD equation for estimated GFR is not valid for patients less than 18 years of age. Additional information may be found at www.kdoqi.org. 13 0.0 - 0.045 ng/mL: Normal 0.046 - 0.5 ng/mL: Suggestive 0.6 - 1.5 ng/mL: Consistent 14 Reference Guidelines*: Desirable: ........... < 200 mg/dL Borderline High: ..... 200-239 mg/dL High: ................ >=240 mg/dL * The National Cholesterol Education Program (NCEP) 15 Reference Guidelines*: Normal: ............. < 150 mg/dL Borderline High: .... 150-199 mg/dL High: ............... 200-499 mg/dL Very High: .......... > 500 mg/dL * Source: National Cholesterol Education Program (NCEP) 16 Reference Guidelines*: Low HDL: ..... < 40 mg/dL Normal: ..... 40-60 mg/dL Desirable: ... > 60 mg/dL *The National Cholesterol Education Program(NCEP) 17 Reference Guidelines*: Optimal:........... <100 mg/dL Near Optimal....... 100-129 mg/dL Borderline High.... 130-159 mg/dL High............... 160-189 mg/dL Very High.......... >=190 mg/dL * Source: National Cholesterol Education Program (NCEP) 18 Note: Persistent reduction for 3 months or more in an eGFR <60 mL/min/1.73 m2 defines CKD. Patients with eGFR values >/=60 mL/min/1.73 m2 may also have CKD if evidence of persistent proteinuria is present. The original MDRD equation for estimated GFR is not valid for patients less than 18 years of age. Additional information may be found at www.kdoqi.org. 19 PT GOING TO [facility] 20 Per NCEP ATP III Guidelines: Results lower than 40 mg/dL are suggestive of increased risk for coronary artery disease. Results > or=to 60 mg/dL are considered a negative risk factor. 21 Per NCEP ATP III Guidelines: Normal Population <130 Patients with medical conditions: CHD/DM Optimal: <100 Borderline high: 130-159 High: 160-189 Very high: >189 22 Clinical Guidelines for recommended serum 25(OH)Vitamin D Deficient at less than 20 ng/mL Insufficient at 20 to <30 ng/mL Sufficient at 30-100 ng/mL Toxicity at greater than 100 ng/mL 23 Updated reference range on new analyzer 24 Updated reference range on new analyzer 25 Concerning GFR Guidelines for Americans: Normal function or mild renal disease, if clinically at risk: >/=60 mL/min Moderately decreased: 30-59 Severely decreased: 15-29 Renal failure: <15 26 Concerning GFR Guidelines: Normal function or mild renal disease, if clinically at risk: >/=60 mL/min Moderately decreased: 30-59 Severely decreased: 15-29 Renal failure: <15 Glomerular Filtration Rate (GFR) is estimated based on the MDRD equation, which assumes a steady state for creatinine as recommended by the National Kidney Disease Education Program in conjunction with the National Institutes of Health and the National Kidney Foundation. Clinical conditions in which it may be necessary to measure GFR by using clearance methods include extremes of age and body size, severe malnutrition or obesity, diseases of skeletal muscle, paraplegia or quadriplegia, vegetarian diet, rapidly changing kidney function, and calculation of the dose of potentially toxic drugs that are excreted by the kidneys. 27 Updated Reference Range 28 E78.2;E55.9;Z11.59 29 Note: Persistent reduction for 3 months or more in an eGFR <60 mL/min/1.73 m2 defines CKD. Patients with eGFR values >/=60 mL/min/1.73 m2 may also have CKD if evidence of persistent proteinuria is present. The original MDRD equation for estimated GFR is not valid for patients less than 18 years of age. Additional information may be found at www.kdoqi.org. 30 Reference Guidelines*: Desirable: ........... < 200 mg/dL Borderline High: ..... 200-239 mg/dL High: ................ >=240 mg/dL * The National Cholesterol Education Program (NCEP) 31 Reference Guidelines*: Normal: ............. < 150 mg/dL Borderline High: .... 150-199 mg/dL High: ............... 200-499 mg/dL Very High: .......... > 500 mg/dL * Source: National Cholesterol Education Program (NCEP) 32 Reference Guidelines*: Low HDL: ..... < 40 mg/dL Normal: ..... 40-60 mg/dL Desirable: ... > 60 mg/dL *The National Cholesterol Education Program(NCEP) 33 Reference Guidelines*: Optimal:........... <100 mg/dL Near Optimal....... 100-129 mg/dL Borderline High.... 130-159 mg/dL High............... 160-189 mg/dL Very High.......... >=190 mg/dL * Source: National Cholesterol Education Program (NCEP) 34 Vitamin D deficiency has been defined by the [place] [employer] and an Endocrine Society practice guideline as a level of serum 25-OH vitamin D less than 20 ng/mL (1,2). The Endocrine Society went on to further define vitamin D insufficiency as a level between 21 and 29 ng/mL (2). 1. IOM ([place] [employer]). 2010. Dietary reference intakes for calcium and D. [place]: The National Academies Press. 2. Marian MF, Carey PIERCE, Abby PAYTON, et al. Evaluation, treatment, and prevention of vitamin D deficiency: an Endocrine Society clinical practice guideline. JCEM. 2010; 96(7):1911-30. Performed at: [employer] [facility] [address] [id number] Manager Eligibility: Lola Agarwal MD, Phone: [phone] 35 INFCE Result Units: s/co ratio Negative: < 0.8 Indeterminate: 0.8 - 0.9 Positive: > 0.9 The CDC recommends that a positive HCV antibody result be followed up with a HCV Nucleic Acid Amplification test (051930). Performed at: [facility] [address] [id number] Manager Eligibility: Lola Agarwal MD, Phone: [phone] 36 Updated reference range on new analyzer 37 Updated reference range on new analyzer 38 Concerning GFR Guidelines for Americans: Normal function or mild renal disease, if clinically at risk: >/=60 mL/min Moderately decreased: 30-59 Severely decreased: 15-29 Renal failure: <15 39 Concerning GFR Guidelines: Normal function or mild renal disease, if clinically at risk: >/=60 mL/min Moderately decreased: 30-59 Severely decreased: 15-29 Renal failure: <15 Glomerular Filtration Rate (GFR) is estimated based on the MDRD equation, which assumes a steady state for creatinine as recommended by the National Kidney Disease Education Program in conjunction with the National Institutes of Health and the National Kidney Foundation. Clinical conditions in which it may be necessary to measure GFR by using clearance methods include extremes of age and body size, severe malnutrition or obesity, diseases of skeletal muscle, paraplegia or quadriplegia, vegetarian diet, rapidly changing kidney function, and calculation of the dose of potentially toxic drugs that are excreted by the kidneys. 40 Updated reference range on new analyzer 41 Per NCEP ATP III Guidelines: Results lower than 40 mg/dL are suggestive of increased risk for coronary artery disease. Results > or=to 60 mg/dL are considered a negative risk factor. 42 Per NCEP ATP III Guidelines: Normal Population <130 Patients with medical conditions: CHD/DM Optimal: <100 Borderline high: 130-159 High: 160-189 Very high: >189 43 Concerning GFR Guidelines for Americans: Normal function or mild renal disease, if clinically at risk: >/=60 mL/min Moderately decreased: 30-59 Severely decreased: 15-29 Renal failure: <15 44 Concerning GFR Guidelines: Normal function or mild renal disease, if clinically at risk: >/=60 mL/min Moderately decreased: 30-59 Severely decreased: 15-29 Renal failure: <15 Glomerular Filtration Rate (GFR) is estimated based on the MDRD equation, which assumes a steady state for creatinine as recommended by the National Kidney Disease Education Program in conjunction with the National Institutes of Health and the National Kidney Foundation. Clinical conditions in which it may be necessary to measure GFR by using clearance methods include extremes of age and body size, severe malnutrition or obesity, diseases of skeletal muscle, paraplegia or quadriplegia, vegetarian diet, rapidly changing kidney function, and calculation of the dose of potentially toxic drugs that are excreted by the kidneys. 45 Per NCEP ATP III Guidelines: Results lower than 40 mg/dL are suggestive of increased risk for coronary artery disease. Results > or=to 60 mg/dL are considered a negative risk factor. 46 Per NCEP ATP III Guidelines: Normal Population <130 Patients with medical conditions: CHD/DM Optimal: <100 Borderline high: 130-159 High: 160-189 Very high: >189 47 Reference Guidelines*: Desirable: ........... < 200 mg/dL Borderline High: ..... 200-239 mg/dL High: ................ >=240 mg/dL * The National Cholesterol Education Program (NCEP) 48 Reference Guidelines*: Normal: ............. < 150 mg/dL Borderline High: .... 150-199 mg/dL High: ............... 200-499 mg/dL Very High: .......... > 500 mg/dL * Source: National Cholesterol Education Program (NCEP) 49 Reference Guidelines*: Low HDL: ..... < 40 mg/dL Normal: ..... 40-60 mg/dL Desirable: ... > 60 mg/dL *The National Cholesterol Education Program(NCEP) 50 Reference Guidelines*: Optimal:........... <100 mg/dL Near Optimal....... 100-129 mg/dL Borderline High.... 130-159 mg/dL High............... 160-189 mg/dL Very High.......... >=190 mg/dL * Source: National Cholesterol Education Program (NCEP) 51 Note: Persistent reduction for 3 months or more in an eGFR <60 mL/min/1.73 m2 defines CKD. Patients with eGFR values >/=60 mL/min/1.73 m2 may also have CKD if evidence of persistent proteinuria is present. The original MDRD equation for estimated GFR is not valid for patients less than 18 years of age. Additional information may be found at www.kdoqi.org. 52 Vitamin D deficiency has been defined by the [place] [employer] and an Endocrine Society practice guideline as a level of serum 25-OH vitamin D less than 20 ng/mL (1,2). The Endocrine Society went on to further define vitamin D insufficiency as a level between 21 and 29 ng/mL (2). 1. IOM ([place] [employer]). 2010. Dietary reference intakes for calcium and D. [place]: The National Academies Press. 2. Marian MF, Carey [place], Abby PAYTON, et al. Evaluation, treatment, and prevention of vitamin D deficiency: an Endocrine Society clinical practice guideline. JCEM. 2010; 96(7):1911-30. Performed at: RN - [facility] [address] [id number] Manager Eligibility: Lola Agarwal MD, Phone: [phone] [address] [address] Surgical Pathology Report Specimen(s) Received A: Shave biopsy left clavicle Clinical Diagnosis and History 3 mm raised pearly nodule, present for several months Gross Description Specimen received in formalin labeled with the patient's name is an irregular, pale funk skin shave fragment (0.7 x 0.55 cm) remarkable for a well defined, ovoid and raised lesion (0.4 x 0.3 cm) with a pale funk and somewhat granular surface. The resection margin is inked black. The specimen is sectioned and entirely submitted in one cassette. (The measurements of the specimen(s) may be less than those in vivo due to tissue shrinkage during histologic fixation and processing.) paw eb/jbs Diagnosis DESIGNATED LEFT CLAVICLE: Lichenoid actinic keratosis. Multiple levels examined. Technical component processed at [facility], Histopathology, [address] [place] [address], [facility]. Diagnosis and reporting performed at [facility] [employer] [facility], [address] [place] [address]. Reported: 06/23/2015 10:22 Electronically Signed Out By Demarco De Leon M.D. paw ICD9 Codes L57.0 Unless otherwise specified, testing performed by [facility] [employer] [address] [id number] [place] [address] Amplified Molecular High Risk HPV Test Accession Number [id number] Specimen(s) Received A: High Risk HPV Thin Prep Cervical / Endocervical Pap Smear - One Vial Other Case Numbers: [id number] Diagnosis RISK GROUPS RESULTS High Risk NEGATIVE Tested for HPV Types (16, 18, 31, 33, 35, 39, 45, 51, 52, 56, 58, 59, 66, 68) Reported: 02/08/2015 16:30 Electronically Signed Out By Lupe Constantino ck [address] [employer] [facility]. [facility] [place] [address] GYNECOLOGIC CYTOLOGY REPORT Accession Number: [id number] Source of Specimen(s): A: Thin Prep Cervical / Endocervical Pap Smear - One Vial Clinical Diagnosis and History: Date of Last Menstrual Period: 2012 Other Clinical Conditions: Last Smear Date: 2013 Elsewhere, results per pt normal HPV ASSAY REQUESTED Specimen Adequacy Satisfactory for evaluation Presence of endocervical/transformation zone component General Categorization Negative for intraepithelial lesion or malignancy Interpretation NEGATIVE FOR INTRAEPITHELIAL LESION OR MALIGNANCY 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 Reported: 02/08/2015 Electronically Signed Out By Bev MG([facility]) [facility] dss Unless otherwise specified, testing performed by [facility] [address] [place] [id number] 56 Per NCEP ATP III Guidelines: Results lower than 40 mg/dL are suggestive of increased risk for coronary artery disease. Results > or=to 60 mg/dL are considered a negative risk factor. 57 Per NCEP ATP III Guidelines: Normal Population <130 Patients with medical conditions: CHD/DM Optimal: <100 Borderline high: 130-159 High: 160-189 Very high: >189 58 Concerning GFR Guidelines for Americans: Normal function or mild renal disease, if clinically at risk: >/=60 mL/min Moderately decreased: 30-59 Severely decreased: 15-29 Renal failure: <15 59 Concerning GFR Guidelines: Normal function or mild renal disease, if clinically at risk: >/=60 mL/min Moderately decreased: 30-59 Severely decreased: 15-29 Renal failure: <15 Glomerular Filtration Rate (GFR) is estimated based on the MDRD equation, which assumes a steady state for creatinine as recommended by the National Kidney Disease Education Program in conjunction with the National Institutes of Health and the National Kidney Foundation. Clinical conditions in which it may be necessary to measure GFR by using clearance methods include extremes of age and body size, severe malnutrition or obesity, diseases of skeletal muscle, paraplegia or quadriplegia, vegetarian diet, rapidly changing kidney function, and calculation of the dose of potentially toxic drugs that are excreted by the kidneys. 60 today tc/letter, divertoc 61 Concerning GFR Guidelines for Americans: Normal function or mild renal disease, if clinically at risk: >/=60 mL/min Moderately decreased: 30-59 Severely decreased: 15-29 Renal failure: <15 62 Concerning GFR Guidelines: Normal function or mild renal disease, if clinically at risk: >/=60 mL/min Moderately decreased: 30-59 Severely decreased: 15-29 Renal failure: <15 Glomerular Filtration Rate (GFR) is estimated based on the MDRD equation, which assumes a steady state for creatinine as recommended by the National Kidney Disease Education Program in conjunction with the National Institutes of Health and the National Kidney Foundation. Clinical conditions in which it may be necessary to measure GFR by using clearance methods include extremes of age and body size, severe malnutrition or obesity, diseases of skeletal muscle, paraplegia or quadriplegia, vegetarian diet, rapidly changing kidney function, and calculation of the dose of potentially toxic drugs that are excreted by the kidneys. 63 OPERATION/PROCEDURE Colonoscopy DIAGNOSIS: PART 1: "ASCENDING POLYP": HYPERPLASTIC POLYP. PART 2: "ASCENDING COLON BIOPSY AND SIGMOID POLYP": HYPERPLASTIC POLYP. MILD CHRONIC COLITIS WITH FOCAL ACTIVITY. NO LYMPHOCYTIC OR COLLAGENOUS COLITIS IDENTIFIED. ELVIE/f 1007 GROSS Part 1. The specimen is submitted in formalin in a container labeled, "ASCENDING POLYP". The specimen consists of two green-yellow pieces of tissue each 0.3 x 0.3 x 0.3 cm. Submitted entirely in one block. Part 2. The specimen is submitted in formalin in a container labeled, "ASCENDING COLON BIOPSY AND SIGMOID POLYP". The specimen consists of multiple pieces of soft red-white tissue with an aggregate diameter of 0.6 cm. Submitted entirely in one block. ELVIE/clevelyn PRE OPERATIVE DIAGNOSIS History of polyps, bleed REVIEW CODE CODE: I Signed Electronically signed JACKY SIERRA MD [id number] 64 Fastin hours 65 Per NCEP ATP III Guidelines: Results lower than 40 mg/dL are suggestive of increased risk for coronary artery disease. Results > or=to 60 mg/dL are considered a negative risk factor. 66 Per NCEP ATP III Guidelines: Normal Population <130 Patients with medical conditions: CHD/DM Optimal: <100 Borderline high: 130-159 High: 160-189 Very high: >189 67 Concerning GFR Guidelines for Americans: Normal function or mild renal disease, if clinically at risk: >/=60 mL/min Moderately decreased: 30-59 Severely decreased: 15-29 Renal failure: <15 68 Concerning GFR Guidelines: Normal function or mild renal disease, if clinically at risk: >/=60 mL/min Moderately decreased: 30-59 Severely decreased: 15-29 Renal failure: <15 Glomerular Filtration Rate (GFR) is estimated based on the MDRD equation, which assumes a steady state for creatinine as recommended by the National Kidney Disease Education Program in conjunction with the National Institutes of Health and the National Kidney Foundation. Clinical conditions in which it may be necessary to measure GFR by using clearance methods include extremes of age and body size, severe malnutrition or obesity, diseases of skeletal muscle, paraplegia or quadriplegia, vegetarian diet, rapidly changing kidney function, and calculation of the dose of potentially toxic drugs that are excreted by the kidneys. 69 For -Chilean patients multiply result by 1.180 70 For -Chilean patients multiply result by 1.180 71 For -Chilean patients multiply result by 1.180 72 FASTING fasting prior to visit05/29 73 For -Chilean patients multiply result by 1.180 74 FASTING fasting in 6 wks, letter ldl goal under 160, switch prav to ator 75 FASTING fasting in 6 wks, letter ldl goal under 160, switch prav to ator 76 Normal Range: Male: <4.98 Female: <4.45 77 FASTING fasting prior to visit 11/25 78 Normal Range: Male: <4.98 Female: <4.45 79 FASTING fasting prior to visit 11/25 80 Vitamin D deficiency has been defined by the [place] [employer] and an Endocrine Society practice guideline as a level of serum 25-OH vitamin D less than 20 ng/mL (1,2). The Endocrine Society went on to further define vitamin D insufficiency as a level between 21 and 29 ng/mL (2). 1. IOM ([place] [employer]). 2010. Dietary reference intakes for calcium and D. [place]: The National Academies Press. 2. Marian DIAZ, Carey PIERCE, Abby PAYTON, et al. Evaluation, treatment, and prevention of vitamin D deficiency: an Endocrine Society clinical practice guideline. JCEM. 2010; 96(7):1911-30. Performed at: RN - [facility] [address] [id number] Manager Eligibility: Lola Agarwal MD, Phone: [phone] 81 FASTING fasting mid august 82 Normal Range: Male: <4.98 Female: <4.45 83 FASTING fasting mid august ov 84 FASTING fasting in end june due to change sim to prav 20 85 FASTING fasting in end june due to change sim to prav 20 86 Normal Range: Male: <4.98 Female: <4.45 87 FASTING FAXcc to lizzie segura np/dr kent, fasting prior to visit 05/28 In Eleuterio Kent MD 88 Normal Range: Male: <4.98 Female: <4.45 89 OPERATION/PROCEDURE Colonoscopy DIAGNOSIS: PART 1: "TRANSVERSE COLON, POLYPECTOMY": HYPERPLASTIC POLYPS. PART 2: "RECTUM, POLYPECTOMY": HYPERPLASTIC POLYP. MISSAEL/meggan GROSS Part 1; "TRANSVERSE COLON POLYPS". The specimen is received in an appropriately labeled container. This contains three rounded red colored pieces of soft tissue measuring up to 1.5 cm.; filtered and submitted in toto within a single cassette. Part 2; "RECTAL POLYP". The specimen is received in an appropriately labeled container. This contains one rounded pink colored piece of soft tissue measuring up to 0.2 cm.; filtered and submitted in toto within a single cassette. MISSAEL/ meggan MICROSCOPIC Parts 1,2: Sections show colonic mucosa lined by an increased number of goblet cells. The glands have a serrated, saw tooth appearance. The nuclei are bland, and basal. PRE OPERATIVE DIAGNOSIS Rectal bleed, history of polyps REVIEW CODE CODE: I ---- Signed IDRIS PAUL MD 03/24/11 1326 ---- 90 FASTING FAXcc to lizzie segura np/dr kent, fasting prior to visit 11/24 In Eleuterio Kent MD 91 Normal Range: Male: <4.98 Female: <4.45 92 FAXcc to lizzie segura np/dr kent, fasting prior to visit 11/24 In Eleuterio Kent MD FAXED CHEMS PER REQUEST - @ 1128 11/10/10,(LAB.KLS) QUERY: @[facility] Pat ID: QUERY: @EMR Req #: 93 Recent studies consider the lower limit of 32.0 ng/mL to be a threshold for optimal health. Dickey BW. J Nutr. 2005 May;135(2):317-22. Performed at: [facility] [employer] [id number] Manager Eligibility: Juan Jose Alexander MD, Phone: [phone] 94 FASTING letter, ldl goal < 160, simv 20, has been on before 95 FASTING letter, ldl goal < 160, simv 20, has been on before QUERY: @[facility] Pat ID: QUERY: @EMR Req #: 96 Normal Range: Male: <4.98 Female: <4.45 97 Recent studies consider the lower limit of 32.0 ng/mL to be a threshold for optimal health. Dickey BW. J Nutr. 2004;135(2):317-22. Performed at: [facility] [employer] [id number] Manager Eligibility: Juan Jose Alexander MD, Phone: [phone] 98 FASTING obtain fastng 5 days prior to next visit 04/26 99 Normal Range: Male: <4.98 Female: <4.45 100 NEGATIVE FOR YESICA SPECIES 101 POSITIVE FOR GARDNERELLA VAGINALIS Testing Performed by: [place] [address] 102 Organism 1 ! GARDNERELLA VAGINALIS QUANTITY ! MANY 103 GRAM STAIN ! GRAM STAIN SUSPICIOUS FOR BACTERIAL VAGINOSIS ! MANY GRAM VARIABLE COCCOBACILLI ! VERY FEW GR POS. BACILLI SUGGESTIVE OF LACTOBACILLUS ! SP. ! MODERATE GRAM POSITIVE COCCI 104 NEGATIVE FOR TRICHOMONAS VAGINALIS 105 NEGATIVE FOR CHLAMYDIA TRACHOMATIS BY DNA HYBRIDIZATION ASSAY. THIS TEST IS APPROVED FOR OCULAR AND UROGENITAL SITES ONLY. 106 NEGATIVE FOR NEISSERIA GONORRHOEAE BY DNA HYBRIDIZATION ASSAY. THIS METHOD IS APPROVED FOR UROGENITAL SITES ONLY. 107 TESTING PERFORMED WEEKLY 108 FASTING 109 NORMALLY MENSTRUATING FEMALES: Follicular Phase:...............39-189 pg/ mL Mid-Cycle Peak:.................94-508 pg/mL Luteal Phase:...................48-309 pg/mL POSTMENOPAUSAL FEMALE:..............0- 41 pg/mL 110 NORMALLY MENSTRUATING FEMALES: Follicular Phase:...............4-13 mIU/mL Mid-Cycle Peak:.................5-22 mIU/mL Luteal Phase:...................2 -13 mIU/mL Postmenopausal Female:........20-138 mIU/mL 111 NORMALLY MENSTRUATING FEMALES: Follicular Phase.............1-18 mIU/mL Mid-Cycle Peak.............24-105 mIU/mL Luteal Phase...............0.4-20 mIU/mL Postmenopausal .............15-62 mIU/mL 112 FASTING obtain fastng 5 days prior to next visit 04/25 113 Normal Range: Male: <4.98 Female: <4.45 114 today ltr, if over 3 needs simvastatin 115 FASTING obtain fastng 5 days prior to next visit 10/22 116 Normal Range: Male: <4.98 Female: <4.45 117 FASTING obtain fastng 5 days prior to next visit 10/21 118 Normal Range: Male: <4.98 Female: <4.45 119 FASTING to follow up new simvastatin 20mg in 6 weeks 120 Normal Range: Male: <4.98 Female: <4.45 121 FASTING obtain fasting labs 5 days prior to next visit 02/20 122 Normal Range: Male: <4.98 Female: <4.45 123 NO GROWTH: FINAL REPORT 124 last meal 1130 Procedures Date Code Description Status 03/26/2018 06374 Brief Emotional/Behav Assessment W/ Scoring Doc Per Completed Standard Inst 02/08/2018 [id number] Mammogram Completed 02/27/2017 65805 Measure Blood Oxygen Level Single Determination Completed 02/27/2017 13003 Bone Density Study (Dexa) Axial Skeleton Completed (Hips,Pelvis,Spine) 02/27/2017 [id number] Bone Mineral Density Test Completed 02/07/2017 05084 Brief Emotional/Behav Assessment W/ Scoring Doc Per Completed Standard Inst 06/21/2015 50634 Shave Skin Lesion <.6CM Trunk/Arm/Leg Completed 01/28/2015 06698 Bone Density Study (Dexa) Axial Skeleton Completed (Hips,Pelvis,Spine) 01/28/2015 02170 Old Bone Density Study (Dexa) Completed 01/28/2015 [id number] Bone Mineral Density Test Completed 01/27/2015 [id number] Mammogram Completed 10/08/2014 [id number] Colonoscopy Completed 02/13/2014 34983 Mammography Unilateral Completed 12/23/2012 14310 Bone Density Study, Single Photon Absorptiometry Completed 03/23/2011 24071 Colonoscopy Flexible Diagnostic Completed 07/06/2010 66576 Bone Density Study, Single Photon Absorptiometry Completed 03/26/2007 81340 Colonoscopy Flexible Diagnostic Completed Encounters Type Date Location Provider Dx Diagnosis Office Visit 07/15/2018 2:15p [facility] Teresa Yarbrough MD R00.2 Palpitations E87.6 Hypokalemia E66.9 Obesity, unspecified N95.1 Menopausal and female climacteric states Z68.30 Body mass index (BMI) 30.0-30.9, adult Office Visit 03/26/2018 11:00a [facility] Teresa Yarbrough MD 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 M25.511 Pain in RIGHT shoulder E78.2 Mixed hyperlipidemia M85.89 Oth disrd of bone density and structure, multiple sites M15.0 Primary generalized (osteo)arthritis Z87.891 Personal history of nicotine dependence E55.9 Vitamin D deficiency, unspecified Z80.3 Family history of malignant neoplasm of breast K63.5 Polyp of colon S92.415A Nondisp fx of proximal phalanx of LEFT great toe, init Z13.31 Encounter for screening for depression Z68.29 Body mass index (BMI) 29.0-29.9, adult Office Visit 08/10/2017 8:30a [facility] Teresa Yarbrough MD E78.2 Mixed hyperlipidemia M85.89 Oth disrd of bone density and structure, multiple sites M15.0 Primary generalized (osteo)arthritis L57.0 Actinic keratosis Z87.891 Personal history of nicotine dependence Z68.29 Body mass index (BMI) 29.0-29.9, adult Office Visit 04/23/2017 2:15p [facility] Teresa Yarbrough MD M25.561 Pain in RIGHT knee M25.562 Pain in LEFT knee Office Visit 02/27/2017 10:45a [facility] Teresa Yarbrough MD J06.9 Acute upper respiratory infection, unspecified Z02.89 Encounter for other administrative examinations Office Visit 02/07/2017 3:30p [facility] Teresa Yarbrough MD 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 E78.2 Mixed hyperlipidemia E55.9 Vitamin D deficiency, unspecified M15.0 Primary generalized (osteo)arthritis L57.0 Actinic keratosis Z80.3 Family history of malignant neoplasm of breast K63.5 Polyp of colon R05 Cough M85.9 Disorder of bone density and structure, unspecified Office Visit 11/01/2016 4:00p [facility] Teresa Yarbrough, W57.xxxA Bit/stung by sanjeev WOODARD insect & oth nonvenom arthropods, init Office Visit 08/15/2016 8:30a [facility] Teresa Yarbrough, E78.2 Mixed hyperlipidemia E55.9 Vitamin D deficiency, unspecified M85.9 Disorder of bone density and structure, unspecified M15.0 Primary generalized (osteo)arthritis Office Visit 02/07/2016 9:30a [facility] Teresa Yarbrough MD K57.92 Dvtrcli of intest, part unsp, w/o perf or abscess w/o bleed R21 Rash and other nonspecific skin eruption E78.2 Mixed hyperlipidemia E55.9 Vitamin D deficiency, unspecified M85.9 Disorder of bone density and structure, unspecified L57.0 Actinic keratosis 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 M15.0 Primary generalized (osteo)arthritis Z12.31 Encntr screen mammogram for malignant neoplasm of breast Z80.3 Family history of malignant neoplasm of breast Z12.11 Encounter for screening for malignant neoplasm of colon Z68.30 Body mass index (BMI) 30.0-30.9, adult Z11.59 Encounter for screening for other viral diseases Office Visit 08/06/2015 9:15a [facility] Teresa Yarbrough MD L57.0 Actinic keratosis E78.2 Mixed hyperlipidemia E55.9 Vitamin D deficiency, unspecified M85.9 Disorder of bone density and structure, unspecified M25.562 Pain in LEFT knee Z02.89 Encounter for other administrative examinations Office Visit 06/21/2015 10:00a [facility] Teresa Yarbrough MD L57.0 Actinic keratosis M54.6 Pain in thoracic spine D48.5 Neoplasm of uncertain behavior of skin L57.0 Actinic keratosis D49.2 Neoplasm of unsp behavior of bone, soft tissue, and skin Z68.30 Body mass index (BMI) 30.0-30.9, adult Office Visit 02/04/2015 8:30a [facility] Teresa Yarbrough MD E78.2 Mixed hyperlipidemia M85.9 Disorder of bone density and structure, unspecified M15.0 Primary generalized (osteo)arthritis Z01.411 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) (routine) w abnormal findings Z12.31 Encntr screen mammogram for malignant neoplasm of breast Z80.3 Family history of malignant neoplasm of breast Z12.11 Encounter for screening for malignant neoplasm of colon Z68.30 Body mass index (BMI) 30.0-30.9, adult E55.9 Vitamin D deficiency, unspecified L02.215 Cutaneous abscess of perineum Office Visit 12/08/2014 9:00a [facility] Teresa Yarbrough MD 789.04 Pain Abdominal LEFT Lower Quadrant 562.11 Diverticulitis Colon W/O Hemorrhage Office Visit 12/04/2014 1:00p [facility] Teresa Yarbrough MD 789.04 Pain Abdominal LEFT Lower Quadrant 562.11 Diverticulitis Colon W/O Hemorrhage Office Visit 10/12/2014 1:30p [facility] Amanda Chan PA 706.2 Sebaceous Cyst Office Visit 08/04/2014 8:30a [facility] Teresa Yarbrough MD 272.2 Hyperlipidemia Mixed 268.9 Vitamin D Deficiency Unspec 719.44 Pain Joint Hand 715.09 Osteoarthrosis Generalized Multiple Sites 733.90 Bone & Cartilage Disorder Unspec V76.12 Screening Mammogram Chemo Boyer Other Plan of Treatment Future Appointment(s):03/25/2019 2:00 pm - Schedule, Laboratory at [facility]2018 2:00 pm - Teresa Yarbrough MD at [facility]09/24/2018 - Teresa Yarbrough MDE78.2 Mixed hyperlipidemiaNew Labs:Lipid, Ordered: 09/24/18Comprehensive Met Panel-[facility], Ordered: 09/24/18CPK, Ordered: 09/24/18Comments:high cholpatient is high risk per atp IV guidelines and assessment which confers moderate risk with new AHA 2018 guidelines LDL labs show a 30-50% reductioncontinue current meds. monitor for side effects of muscle aches or crampswe watch for liver effects with labsPlease call if you have any concerns.aspirin 81mg daily is also recommended, she declines For lifestyle, we also recommend: Low fat ( under 30gm per day), low chol diet ( under 300mg per day chol)focus on lean meat, nonfat 1% dairy, increased veg and fruit, whole grains weight lossexercise build to at least 30min per day. Reviewed signs and symptoms of cardiovascular disease.Follow up:mammo after 1029; next visit afer 03/26 for 30min annual wallpaper cleaner exam and not fasting labs 5 days ozahuE81.641 Pain in RIGHT handNew Medication: Wrist Splint/Cock-Up/RIGHT/Canvas/X-Large - size to fit, wear at nightComments :pain and numbness in right hand with certain positions. recommend nocturnal wrist splintseek care ifnot improving, can't tell if carpal tunnel vs neck or Thoracic outlet at this pointFollow up:Followup:. (Follow up)Z87.891 Personal history of nicotine dependenceComments:Reviewed lung cancer screening by ct scan eligibility, She started age 15, smoked 1/2 to 1 ppd, quit age 47, in 2007, feels she smoked 1ppd from age 21s through age 47, 1/2 ppd when , calculates to about 28 pack years, not over the 30pack year eligibility for lung cancer screening, reviewed 08/10/17 LMCZ12.31 Encounter for screening mammogram for malignant neoplasm ofNew Xrays:Mammogram Screening, Bilateral Incl CAD When Performe, Scheduled: 02/12/19Comments:Annual mammogram and clinical breast exam with monthly breast self exams discussed. Pt should call/ come in if she has any changes in breast self exam or concerns. Advised pt that for those aged 50-74, USPSTF recommends mammo every other year , and breast self exam or clinical breast exam need to be decided individually. [employer] recommends for those age 55 and up, mammo every other year and to not do annual clinical breast exams. At risk pts should do annually or as directed by specialist recommendations. Currently I am recommending pts do what they feel they should, and that mostin this risk category do an annual mammogram and clinical breast exam. If you want to treat breast cancer, then do annual screening. Discussed the new recommendations for breast ultrasound for verydense breasts as an additional test for screening. She asks for annual mammogram and clinical breast exam.E66.9 Obesity, unspecifiedComments: continue to work on diet, exercise, weight lossZ68.30 Body mass index (BMI) 30.0 -30.9, adultComments:recommend reduced calorie intake, healthy eating and regular exercise for weight reduction
[2018-10-08 13:40] VITALS: BP 124/55
--- NOTE | 2018-10-08 14:29 | ED ---
Lower Extremity - HPI Summary HPI Summary: 58 yr old female with the complaint of left sided sciatica symptoms two weeks ago with pain in the posterior buttock area and radiating down behind the left leg into the back of the knee. Over the past several days she has some pain in the left hip. Symptoms are worse with axial loading. No fever or chills. No bowel or bladder incontinence. No focal neurological symptoms. - History of Current Complaint Chief Complaint: UCLowerExtremity Stated Complaint: LEFT HIP PAIN Time Seen by Provider: 10/08/18 13:46 Hx Last Menstrual Period: FESB 2012, GOING THRU MENOPAUSE Pain Intensity: 4 - Allergies/Home Medications Allergies/Adverse Reactions: Allergies Allergy/AdvReac Type Severity Reaction Status Date / Time No Known Allergies Allergy Verified 10/08/18 13:34 PMH/Surg Hx/FS Hx/Imm Hx - Surgical History Surgery Procedure, Year, and Place: C SECTION Infectious Disease History: No Infectious Disease History: Denies: Traveled Outside the [place] in Last 30 Days - Family History Known Family History: Positive: Hypertension, Diabetes, Other - [place], Non- Contributory - Social History Occupation: Employed Full-time Lives: With Family Alcohol Use: Occasionally Substance Use Type: Reports: Marijuana Substance Use Comment - Amount & Last Used: occasional use- last used 2 days ago Smoking Status (MU): Former Smoker Review of Systems Constitutional: Negative Positive: Other - left side sicatica, hip pain Negative: Weakness, Paresthesia, Numbness All Other Systems Reviewed And Are Negative: Yes Physical Exam Triage Information Reviewed: Yes Vital Signs On Initial Exam: Initial Vitals Temp Pulse Resp BP Pulse Ox 97.9 F 61 20 124/55 98 10/08/18 13:36 10/08/18 13:36 10/08/18 13:36 10/08/18 13:36 10/08/18 13:36 Vital Signs Reviewed: Yes Appearance: Positive: Well-Appearing, No Pain Distress Skin: Positive: Warm, Skin Color Reflects Adequate Perfusion Head/Face: Positive: Normal Head/Face Inspection Eyes: Positive: EOMI, NIXON ENT: Positive: Normal ENT inspection Neck: Positive: Nontender Respiratory/Lung Sounds: Positive: Clear to Auscultation, Breath Sounds Present Cardiovascular: Positive: RRR. Negative: Murmur Abdomen Description: Positive: Nontender. Negative: Distended Musculoskeletal: Positive: Strength/ROM Intact, Other - no swelling or redness to the left hip. No midline spine tenderness Neurological: Positive: Sensory/Motor Intact, Alert, Oriented to Person Place, Time, CN Intact II-III Psychiatric: Positive: Normal Diagnostics - Vital Signs Vital Signs Temp Pulse Resp BP Pulse Ox 10/08/18 13:36 97.9 F 61 20 124/55 98 - Laboratory Lab Statement: Any lab studies that have been ordered have been reviewed, and results considered in the medical decision making process. - Radiology lumbar sacral spine and left hip and pelvis Radiology Interpretation Completed By: Radiologist - Grade one spondylolithesis with L4/5 arthropathy. Lower Extremity Course/Dx - Course Course Of Treatment: 58 yr old with likely spine issue causing her symptoms. fu with ortho and her primary care doctor for further work up and care. - Diagnoses Provider Diagnoses: Spondylolisthesis at L4-L5 level Discharge - Sign-Out/Discharge Documenting (check all that apply): Patient Departure All imaging exams completed and their final reports reviewed: Yes - Discharge Plan Condition: Good Disposition: HOME Patient Education Materials: Lumbar Radiculopathy (ED) Referrals: Teresa Yarbrough MD [Primary Care Provider] - 1 Day Rian Koenig MD [Medical Doctor] - 1 Day - Billing Disposition and Condition Condition: GOOD Disposition: Home
== END 2018-10-08 14:37 | disposition home or self-care (01) ==
LOC: UCCORT 13:20
DX: M43.16 Spondylolisthesis, lumbar region (principal); Z87.891 Personal history of nicotine dependence
CPT/HCPCS: 72110; 99212; G0463

== ENCOUNTER 2019-05-11 09:18 | Emergency (ER) | payer BC ==
[2019-05-11 09:28] VITALS: BP 139/75
--- NOTE | 2019-05-11 09:48 | UC ---
UC General HPI - HPI Summary HPI Summary: 59 year old female presents with epigastric pain for the past day. States she was sitting knitting when she developed epigastric burning. Denies associated shortness of breath, diaphoresis, radiation nor n/v. No cardiac history. Denies diarrhea. Denies eating greasy nor spicy foods, no recent NSAID use. Took one dose of omeprazole without improvement of sx. - History of Current Complaint Chief Complaint: UCGeneralIllness Stated Complaint: MID-STERNAL PAIN Time Seen by Provider: 05/11/19 09:20 Hx Last Menstrual Period: FESB 2012, GOING THRU MENOPAUSE Onset/Duration: Sudden Onset, Lasting Hours - over the past 24 hours Pain Intensity: 4 Associated Signs & Symptoms: Negative: Cough, Chest Pain, Dizziness, Diarrhea, Diaphoresis, Fever, Headache, Hematemesis, Hemoptysis, Nausea, SOB, Vomiting - Allergy/Home Medications Allergies/Adverse Reactions: Allergies Allergy/AdvReac Type Severity Reaction Status Date / Time No Known Allergies Allergy Verified 05/11/19 09:21 PMH/Surg Hx/FS Hx/Imm Hx Previously Healthy: Yes Endocrine History: Dyslipidemia - Surgical History Surgical History: Yes Surgery Procedure, Year, and Place: C SECTION - Family History Known Family History: Positive: Hypertension, Diabetes, Other - [place], Non- Contributory - Social History Alcohol Use: Occasionally Substance Use Type: Marijuana Substance Use Comment - Amount & Last Used: occasional use- Smoking Status (MU): Former Smoker When Did the Patient Quit Smoking/Using Tobacco: 2007 - Immunization History Vaccination Up to Date: Yes Review of Systems All Other Systems Reviewed And Are Negative: Yes Constitutional: Positive: Negative Skin: Positive: Negative Eyes: Positive: Negative ENT: Positive: Negative Respiratory: Positive: Negative Cardiovascular: Positive: Negative Gastrointestinal: Positive: Other - Epigastric pain Genitourinary: Positive: Negative Motor: Positive: Negative Neurovascular: Positive: Negative Musculoskeletal: Positive: Negative Neurological: Positive: Negative Psychological: Positive: Negative Is Patient Immunocompromised?: No Physical Exam Triage Information Reviewed: Yes Appearance: Well-Appearing, No Pain Distress, Well-Nourished Vital Signs: Initial Vital Signs Temp 97.5 F 05/11/19 09:22 Pulse 52 05/11/19 09:22 Resp 16 05/11/19 09:22 BP 139/75 05/11/19 09:22 Pulse Ox 99 05/11/19 09:22 ENT: Positive: Normal ENT inspection Neck: Positive: Supple, Nontender, No Lymphadenopathy Respiratory: Positive: Lungs clear, Normal breath sounds. Negative: Crackles, Rhonchi, Wheezing Cardiovascular: Positive: RRR, No Murmur Abdomen Description: Positive: Soft, Other: - epigastric tenderness to palpation.. Negative: Guarding, Hernia @, Hepatomegaly, McBurney's Point Tenderness, Pulsatile Mass Musculoskeletal Exam: Normal Neurological Exam: Normal Psychological Exam: Normal Skin Exam: Normal Diagnostics - EKG Cardiac Rate: Bradycardia Cardiac Rhythm: Sinus: Normal Ectopy: None ST Segment: Normal Summary of EKG Findings: Sinus bradycardia, otherwise normal EKG. Course/Dx - Course Course Of Treatment: Significant improvement of sx with GI cocktail. - Diagnoses Provider Diagnosis: Dyspepsia Discharge ED - Sign-Out/Discharge Documenting (check all that apply): Patient Departure All imaging exams completed and their final reports reviewed: No Studies - Discharge Plan Condition: Stable Disposition: HOME Prescriptions: raNITIdine HCl [Acid Control] 150 mg PO BID #60 tablet Patient Education Materials: Indigestion (ED) Referrals: Teresa Yarbrough MD [Primary Care Provider] - Additional Instructions: Take ranitidine as prescribed. You may also take Tums or Maalox as needed between doses. Follow-up with your Primary Care Physician. - Billing Disposition and Condition Condition: STABLE Disposition: Home
[2019-05-11] MEDS ORDERED: Lidocaine 2% VISCOUS* 15 ML UDC PO ONE (09:54)
[2019-05-11] MEDS ORDERED: Al Hydrox/Mg Hydrox/Simet LIQ* 30 ML UDC PO ONE (09:54)
--- OUTSIDE RECORDS SUMMARY | 2019-05-11 10:48 | XMS REPORT | Continuity of Care Document ---
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 Problems Active Problems Provider Date Family history of diabetes mellitus Teresa Yarbrough MD Onset: 02/02/2014 Family [...] Actinic keratosis Teresa Yarbrough MD Onset: 08/06/2015 Obesity Teresa Yarbrough MD Onset: 04/01/2019 Social History Type Date Description Comments Sex Unknown Tobacco Use Start: 04/16/74 Former Cigarette Smoker started age 15, End: 04/16/07 smoked 1/2 to 1 ppd, quit age 47, in 2007, feels she smoked 1ppd from age 21s through age 47, 1/2 ppd when , calculates to about 28 pack years, not over the 30pack year [place] for lung cancer screening, [place] [facility] [place] Status Reviewed: 04/01/19 Former Cigarette Smoker started age 15, smoked 1/2 to 1 ppd, quit age 47, in 2007, feels she smoked 1ppd from age 20s through age 47, 1/2 ppd when , calculates to about 28 pack years, not over the 30pack year eligibility for lung cancer screening, [place] 08[place]10[place]17 [facility] [place] [place]H Use Currently consumes 12 pack/week alcohol Tobacco Use Start: Unknown End: Patient is a former quit again 04/23 Unknown smoker Recreational Drug Use Current Drug User Current Drug User - marijuana, occasionally, advised cessation 02/04/15 Allergies, Adverse Reactions, Alerts Description No Known Drug Allergies Medications Active Medications SIG Qnty Indications Ordering Provider Date Albuterol Sulfate HFA 2 puffs every 4 8.500gm J20.9 Teresa Yarbrough, 10/2019 hours as needed 108(90Base) mcg/Act Aerosol Black Cohosh 1 by mouth Teresa Yarbrough, 08/10/2017 540mg every day Capsules Atorvastatin Calcium take 1 tablet 90tabs E78.2 Teresa Yarbrough, 2011 20mg once daily Tablets History Medications Omeprazole 1 by mouth every R10.816 Teresa Yarbrough, 01/21/2019 - 20mg day 30min before 02/04/[address] a meal before breakfast Metronidazole 1 by mouth three 30tabs K57.33 Teresa Yarbrough, 01/14/2019 - 500mg times a day 03/31/2019 Tablets Ciprofloxacin HCL 1 by mouth twice 20tabs K57.33 Teresa Yarbrough, 2018 - a day 01/20/2019 500mg Tablets Immunizations CPT Code Status Date Vaccine Reaction Lot # [id number] Given 12/23/2012 Tdap (Adacel) Ages 7 And Above Only 20040 Given 10/08/2002 Immunization Td 7 Yrs Or Older 11023 Refused 04/01/2019 Shingrix (Shingles) Zoster AWARE CAN GET AT PHARMACY Vaccine HZV, Recombinant, Subunit, Adj 95376 Refused 04/01/2019 Fluzone Highdose Age 65 And Over Preservative & Antibiotic Free Q2039 Refused 11/29/2018 Flu Vaccine NOS Q2039 Refused 03/26/2018 Flu Vaccine NOS 63702 Refused 03/26/2018 Shingrix (Shingles) Zoster Vaccine HZV, Recombinant, Subunit, Adj 28103 Refused 08/10/2017 Influenza Virus Vaccine,Quadrivalent,Split,Prese rv Free, 0.5mL,[place] [address] Refused 02/04/2015 Influenza Virus Vaccine,Quadrivalent,Split,Prese rv Free, 0.5mL,[place] [address] Refused 07/14/2014 Influenza Virus Vaccine,Quadrivalent,Split,Prese rv Free, 0.5mL,Im Vital Signs Date Vital Result Comment 04/22/2019 1:02pm Body Temperature 97.5 F Weight 186.00 lb Heart Rate 73 /min BP Systolic 138 mmHg BP Diastolic 74 mmHg Respiratory Rate 16 /min Height 65.25 inches 5'5.25" O2 % BldC Oximetry 98 % BMI (Body Mass Index) 30.7 kg/m2 04/01/2019 2:02pm Weight 186.00 lb Heart Rate 60 /min BP Systolic 126 mmHg BP Diastolic 74 mmHg Respiratory Rate 14 /min Height 65.25 inches 5'5.25" BMI (Body Mass Index) 30.7 kg/m2 Results Test Acquired Date Facility Test Result H/L Range Note Lipid 03/25/2019 [facility]olesterol 203 mg/dL High 50-199 1 Triglycerides 235 mg/dL High 30-200 HDL 69 mg/dL 35-85 2 Chol/ HDL Ratio 2.9 ratio Low 3.7-5.6 VLDL 47 mg/dL High 2-29 LDL (Calc) 87 mg/dL 20-99 3 Comprehensive Met Panel-[facility] 03/25/2019 [facility] Sodium 140 mmol/L 135- 146 4 Potassium 4.1 mmol/L 3.5-5.2 Chloride# 104 mmol/L 97-110 5 Carbon Dioxide 27 mmol/L 24-34 Calcium 9.7 mg/dL 8.5-10.5 6 Glucose 83 mg/dL 70-105 BUN 24 mg/dL 6-26 Creatinine 0.9 mg/dL 0.5-1.4 Total Protein 6.7 g/dL 6.0-8.0 Albumin 4.8 g/dL 3.6-4.9 Globulin 1.9 g/dL Low 2.0-3.5 A/G Ratio 2.5 Ratio High 1.0-2.2 Total Bilirubin 1.0 mg/dL 0.1-1.3 Alkaline Phosphatase 90 U/L 24-140 Alt 17 U/L 3-42 Ast 17 U/L 8-42 Anion Gap 9 mmol/L 5-15 7 Female Egfr 71 >60 8 Male Egfr 94 >60 9 Laboratory test finding 03/25/2019 [facility] CPK 101 U/L 12-199 1 before visit 03/2019 2 Per NCEP ATP III Guidelines: Results lower than 40 mg/dL are suggestive of increased risk for coronary artery disease. Results > or = to 60 mg/dL are considered a negative risk factor. 3 Per NCEP ATP III Guidelines: Normal Population <130 Patients with medical conditions: CHD/DM Optimal: <100 Borderline high: 130-159 High: 160-189 Very high: >189 4 Updated reference range on new analyzer 5 Updated reference range on new analyzer 6 Updated reference range 08-14-2018 7 Updated Reference Range 8 Concerning GFR Guidelines for Americans: Normal function or mild renal disease, if clinically at risk: >/= 60 mL/min Moderately decreased: 30-59 Severely decreased: 15-29 Renal failure: <15 There is reduced accuracy above 60ml/min/1.73 m squared, but the numeric value may be clinically useful in the near 60 range 9 Concerning GFR Guidelines: Normal function or mild renal disease, if clinically at risk: >/= 60 mL/min Moderately decreased: 30-59 Severely decreased: 15-29 Renal failure: <15 There is reduced accuracy above 60ml/min/1.73 m squared, but the numeric value may be clinically useful in the near 60 range Glomerular Filtration Rate (GFR) is estimated based on the CKD-EPI equation, which assumes a steady state for [...] drugs that are excreted by the kidneys. Procedures Date Code Description Status 04/22/2019 04133 Measure Blood Oxygen Level Single Determination Completed 04/22/2019 33850 Init Demo Of Nebulizer/Inhaler Or Ippb &/Or Patients Completed Utilization 04/01/2019 43268 Admin Patient Focused Health Risk Assessment Completed Instrument 02/12/2019 [id number] Mammogram Completed 01/14/2019 21338 Measure Blood Oxygen Level Single Determination Completed 02/08/2018 [id number] Mammogram Completed 02/27/2017 277097768 Bone Mineral Density Test Completed 01/28/2015 [id number] Bone Mineral Density Test Completed 01/27/2015 [id number] Mammogram Completed 10/08/2014 [id number] Colonoscopy Completed Medical Devices Description No Information Available Encounters Type Date Location Provider Dx Diagnosis Office Visit 01/21/2019 [facility] Teresa Yarbrough, R10.816 Epigastric abdominal 4:15p MD tenderness K57.33 Dvtrcli of lg int w/o perforation or abscess w bleeding E66.9 Obesity, unspecified Z68.30 Body mass index (BMI) 30.0-30.9, adult Office Visit 01/14/2019 11:30a [facility] Teresa Yarbrough MD R10.814 LEFT lower quadrant abdominal tenderness K57.33 Dvtrcli of lg int w/o perforation or abscess w bleeding K62.89 Other specified diseases of anus and rectum Z68.29 Body mass index (BMI) 29.0-29.9, adult Office Visit 11/29/2018 1:00p [facility] Teresa Yarbrough MD 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 E66.9 Obesity, unspecified Z68.30 Body mass index (BMI) 30.0-30.9, adult Assessments Date Code Description Provider 04/22/2019 J20.9 Acute bronchitis, unspecified Teresa Yarbrough MD 04/22/2019 E66.9 Obesity, unspecified Teresa Yarbrough MD 04/22/2019 Z87.891 Personal history of nicotine dependence Teresa Yarbrough MD 04/22/2019 Z68.30 Body mass index (BMI) 30.0-30.9, adult Teresa Yarbrough MD 04/01/2019 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 04/01/2019 Z01.411 Encounter for gynecological examination Teresa Yarbrough MD (general) (routine) with abnormal findings 04/01/2019 E78.2 Mixed hyperlipidemia Teresa Yarbrough MD 04/01/2019 M85.89 Other specified disorders of bone density and Teresa Yarbrough MD structure, mul 04/01/2019 M15.0 Primary generalized (osteo)arthritis Teresa Yarbrough MD 04/01/2019 Z87.891 Personal history of nicotine dependence Teresa Yarbrough MD 04/01/2019 E55.9 Vitamin D deficiency, unspecified Teresa Yarbrough MD 04/01/2019 Z12.31 Encounter for screening mammogram for Teresa Yarbrough MD malignant neoplasm of 04/01/2019 F12.29 Cannabis dependence with unspecified Teresa Yarbrough MD cannabis-induced disorder 04/01/2019 F10.288 Alcohol dependence with other alcohol-induced Teresa Yarbrough MD disorder 04/01/2019 D12.6 Benign neoplasm of colon, unspecified Teresa Yarbrough MD 04/01/2019 E66.9 Obesity, unspecified Teresa Yarbrough MD 04/01/2019 Z68.30 Body mass index (BMI) 30.0-30.9, adult Teresa Yarbrough MD 03/25/2019 E78.2 Mixed hyperlipidemia Teresa Yarbrough MD 03/25/2019 E78.2 Mixed hyperlipidemia Schedule, Laboratory 03/25/2019 E78.2 Mixed hyperlipidemia [facility] 01/21/2019 R10.816 Epigastric abdominal tenderness Teresa Yarbrough MD 01/21/2019 K57.33 Diverticulitis of large intestine without Teresa Yarbrough MD perforation or abscess with bleeding 01/21/2019 E66.9 Obesity, unspecified Teresa Yarbrough MD 01/21/2019 Z68.30 Body mass index (BMI) 30.0-30.9, adult Teresa Yarbrough MD 01/14/2019 R10.814 LEFT lower quadrant abdominal tenderness Teresa Yarbrough MD 01/14/2019 K57.33 Diverticulitis of large intestine without Teresa Yarbrough MD perforation or abscess with bleeding 01/14/2019 K62.89 Other specified diseases of anus and rectum Teresa Yarbrough MD 01/14/2019 Z68.29 Body mass index (BMI) 29.0-29.9, adult Teresa Yarbrough MD 11/29/2018 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 11/29/2018 E66.9 Obesity, unspecified Teresa Yarbrough MD 11/29/2018 Z68.30 Body mass index (BMI) 30.0-30.9, adult Teresa Yarbrough MD Plan of Treatment Future Appointment(s):09/22/2019 2:00 pm - Schedule, Laboratory at [facility]2019 1:00 pm - Teresa Yarbrough MD at [facility]04/22/2019 - Teresa Yarbrough MDJ20.9 Acute bronchitis, unspecifiedNew Medication:Albuterol Sulfate HFA 108( 90 Base) mcg/Act - 2 puffs every 4 hours as neededComments:bronchitis, chest coldThe most likely cause is a virus (over 90% of cases are caused by a virus) that won't respond to antibiotics. No signs of bacterial infection on exam. Can expect cough to worsen before it improves, and whole illness course may last up to 3-4 weeks, as long as you are not worsening and slowly improve you can just let your body heal. Please call for increased Shortness of breath, temp >=101, increased cough that's productive of colored sputum, chest pain, or cough longer than 4 week, or any other concerns. Pt may try a vaporizer at night to help with mouth dryness and sorethroat. May try OTC meds to help relieve symptoms. Please avoid marijuana use it's an irritant. Avoid alcohol She avoids tobacco already. Recommend addition of albuterol inhaler due to wheezy/cough. Take 2 puffs every 4 hours as needed, pt instructed in puffer use by nurse Shari Cabrera up:followup as saeugddqtH26.9 Obesity, unspecifiedComments:continue to work on diet, exercise, weight lossZ87.891 Personal history of nicotine dependenceComments:Former smoker, not a candidate for lung cancer screening based on history Seek care for persistent cough, unexpected weight loss/fatigue, coughing up blood as these can be signs of lung sjzmneF82.30 Body mass index (BMI) 30.0-30.9, adultComments:recommend reduced calorie intake, healthy eating and regular exercise for weight reduction Functional Status Description No Information Available Mental Status Description No Information Available Referrals Refer to Dr Reason for Referral Status Appt Date Harris Walker md 59 yo painful xyphoid, would like removed. Scheduled 09/2019 Called and spoke to Radha and scheduled the pt for 04/07 @ 2pm. Faxed all necessary paperwork needed for the to review prior to the OV. KR 04/02 Called and spoke to the pt who took down all the information about the apt. I notified them to pickling solution maker the CD of the X-ray prior to the Apt. Also mailed out a copy of the referral for the pt reference. KR 04/02 APPT CANCELLED DUE TO OFFICE NOT BEING ABLE TO TREAT XYPHOID. LMTCB ON PT'S MOBILE TO LET KNOW APPT WAS CANCELLED AND WE WILL GIVE A CALL BACK WHEN WE KNOW MORE. -TRH 04/[address] Walker, scheduled with Lona _-TRH 04/03 [address] [place] [address] [phone] Lisa Black 59 yo had colonoscopy with colitis, hyperplastic Scheduled polyps summer 2014, per DR Black due to recheck at 5 yr. Faxed all necessary paperwork needed for the to review and schedule the pt. KR 04/01 [address] [place] [address] [phone]
--- OUTSIDE RECORDS SUMMARY | 2019-05-11 10:48 | XMS REPORT | Continuity of Care Document ---
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 Disorder of bone Onset: 02/04/2015 Dyssomnia Onset: 12/07/2006 Ex-smoker Onset: 05/18/2010 Family history of breast cancer Onset: 05/24/2011 Family history of diabetes mellitus Onset: 02/02/2014 Mixed hyperlipidemia Onset: 12/07/2006 Obesity Onset: 04/01/2019 Osteochondropathy Onset: 11/16/2010 Vitamin D deficiency Onset: 11/16/2010 Neoplasm of uncertain behavior of bone Harris Walker MD,FACS Onset: 2019 Social History Type Date Description Comments Sex Unknown Tobacco Use Start: Unknown currently smokes 1/2 Pack Daily Smoking Status Reviewed: 04/21/19 currently smokes 1/2 Pack Daily ETOH Use Rarely consumes alcohol Allergies, Adverse Reactions, Alerts Description No Known Drug Allergies Medications Active Medications SIG Qnty Indications Ordering Provider Date Atorvastatin Calcium take 1 tablet 90tabs E78.2 Teresa Yarbrough, 2011 20mg once daily Tablets Immunizations CPT Code Status Date Vaccine Lot # [id number] Given 12/23/2012 Tdap injection 32065 Given 10/08/2002 Td Preservative Free For Use In Individuals 7 Yrs Or Older 41649 Refused 04/01/2019 Shingrix Zoster Vaccine (HZV), Recombinant, Subunit , Adjuvante 90388 Refused 04/01/2019 Influenza High Dose 24656 Refused 11/29/2018 flu vaccination 71683 Refused 03/26/2018 Shingrix Zoster Vaccine (HZV), Recombinant, Subunit , Adjuvante 43363 Refused 03/26/2018 flu vaccination 17004 Refused 08/10/2017 Influenza Virus Vaccine, Quadrivalent, 36 Mos+, .5ML 70853 Refused 02/04/2015 Influenza Virus Vaccine, Quadrivalent, 36 Mos+, .5ML 75286 Refused 07/14/2014 Influenza Virus Vaccine, Quadrivalent, 36 Mos+, .5ML Vital Signs Date Vital Result Comment 04/21/2019 8:33am BP Systolic Sitting Left Arm 148 mmHg BP Diastolic Sitting Left Arm 86 mmHg Body Temperature 98.1 F Heart Rate 59 /min Height 65.25 inches 5'5.25" Weight 186.00 lb Pain Level 0 BMI (Body Mass Index) 30.7 kg/m2 BSA (Body Surface Area) 1.92 m2 [place] body weight in kilograms 57 kg O2 % BldC Oximetry 97 % Ra 04/01/2019 2:02pm BP Systolic 126 mmHg BP Diastolic 74 mmHg Heart Rate 60 /min Respiratory Rate 14 /min Height 65.25 inches Weight 186.00 lb BMI (Body Mass Index) 30.7 kg/m2 Results Test Acquired Date Facility Test Result H/L Range Note Lab Results 03/25/2019 [facility] Cholesterol 203 mg/dL High 50-199 1 Triglycerides 235 mg/dL High 30-200 HDL 69 mg/dL 35-85 2 Chol/ HDL Ratio 2.9 ratio Low 3.7-5.6 VLDL 47 mg/dL High 2-29 LDL (Calc) 87 mg/dL 20-99 3 Comprehensive Met Panel-[facility] 03/25/2019 [facility] Sodium 140 mmol/L 135-146 4 Potassium 4.1 mmol/L 3.5-5.2 Chloride# 104 [...] 9 mmol/L 5-15 7 Female Egfr 71 1 8 Male Egfr 94 1 9 Lab Results 03/25/2019 [facility] CPK 101 U/L 12-199 1 before visit [...] that are excreted by the kidneys. 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 nothing felt to bein the subcutaneous tissue. this is probably in the bone or cartilage. will send her for CT of the chest and call her with the results afterwards. not sure if this is something that would require referral to thoracic surgery in case bone/ cartilage is involved. Functional Status Description No Information Available Mental Status Description No Information Available Referrals Description No Information Available
--- OUTSIDE RECORDS SUMMARY | 2019-05-11 10:48 | XMS REPORT | Continuity of Care Document ---
:1960 External Reference #:[id number] Author Name Harris Walker MD,FACS Address [address] [place] [address] Care Team Providers Name Role Phone Teresa Yarbrough MD - Family Care Team Information Clerk [phone] Medicine Problems Active Problems Provider Date Actinic [...] Onset: 11/16/2010 Vitamin D deficiency Onset: 11/16/2010 Epigastric pain Harris Walker MD,FACS Onset: 04/30/2019 Neoplasm of uncertain behavior of bone Harris [...] CPT Code Status Date Vaccine Lot # [id number] Given 12/23/2012 Tdap injection 50886 Given 10/08/2002 Td Preservative Free For Use In Individuals 7 Yrs Or Older 87085 Refused 04/01/2019 Shingrix Zoster Vaccine (HZV), Recombinant, Subunit , Adjuvante 25990 Refused 04/01/2019 Influenza High Dose 37637 Refused 11/29/2018 flu vaccination 18577 Refused 03/26/2018 Shingrix Zoster Vaccine (HZV), Recombinant, Subunit , Adjuvante 63450 Refused 03/26/2018 flu vaccination 59590 Refused 08/10/2017 Influenza Virus Vaccine, Quadrivalent, 36 Mos+, .5ML 89523 Refused 02/04/2015 Influenza Virus Vaccine, Quadrivalent, 36 Mos+, .5ML 85866 Refused 07/14/2014 Influenza Virus Vaccine, Quadrivalent, 36 Mos+, .5ML Vital Signs Date Vital Result Comment 04/30/2019 1:46pm BP Systolic Sitting Left Arm 105 mmHg BP Diastolic Sitting Left Arm 64 mmHg Body Temperature 97.8 F Heart Rate 59 /min Height 65.25 inches 5'5.25" Weight 189.00 lb BMI (Body Mass Index) 31.2 kg/m2 BSA (Body Surface Area) 1.94 m2 [place] body weight in kilograms 57 kg O2 % BldC Oximetry 96 % ra 04/21/2019 8:33am BP Systolic Sitting Left Arm 148 mmHg BP Diastolic Sitting Left Arm 86 mmHg Body Temperature 98.1 F Heart Rate 59 /min Height 65.25 inches 5'5.25" Weight 186.00 lb Pain Level 0 BMI (Body Mass Index) 30.7 kg/m2 BSA (Body Surface Area) 1.92 m2 [place] body weight in kilograms 57 kg O2 % BldC Oximetry 97 % Ra Results Test Acquired Date Facility Test Result [...] Date Location Provider Dx Diagnosis Office Visit 04/21/2019 Surgical Office Harris Walker, D48.0 Neoplasm of 8:30a [facility] uncertain behavior of bone/artic cartl Assessments Date Code Description Provider 04/30/2019 R10.13 Epigastric pain Harris Walker MD, FACS 04/21/2019 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 this doesn't bother the patient if she doesn't press on the area, xray, ultrasound and CT scan didn't show any pathology, to my exam this seems to be the xyphoid process. i am not sure if surgical exploration and removal of the Xyphoid process would solve the issue. i discussed the options with the patient and she would like to hold off on any intervention at this point. i recommended that she sleeps sideways instead of prone and not to press or touch the area as quit often. RTC prn. Functional Status Description No Information Available Mental Status Description No Information Available Referrals Description No Information Available
--- OUTSIDE RECORDS SUMMARY | 2019-05-11 10:48 | XMS REPORT | Continuity of Care Document ---
:1960 External Reference #:[id number] Author Name Teresa Yarbrough MD Address [address] [place] [address] Care Team Providers Name Role Phone [facility] Care Team Information Search Engine Optimization Manager [phone] Care Team Information Search Engine Optimization Manager [phone] Lisa Black - Gastroenterology Care Team Information Search Engine Optimization Manager Problems Active Problems Provider Date Family history [...] Actinic keratosis Teresa Yarbrough MD Onset: 08/06/2015 Social History Type Date Description Comments Sex Unknown Tobacco Use Start: 04/16/74 Former Cigarette Smoker started age 15, End: 04/16/07 smoked 1/2 to 1 ppd, quit age 47, in 2007, feels she smoked 1ppd from age 21s through age 47, 1/2 ppd when , calculates to about 28 pack years, not over the 30pack year eligibility for lung cancer screening, reviewed 08/10/17 [facility] [place] Status Reviewed: 04/01/19 Former Cigarette Smoker started age 15, smoked 1/2 to 1 ppd, quit age 47, in 2007, feels she smoked 1ppd from age 20s through age 47, 1/2 ppd when , calculates to about 28 pack years, not over the 30pack year eligibility for lung cancer screening, reviewed 08/10/17 [facility] [place] ETOH Use Currently consumes 12 pack/week alcohol Tobacco Use Start: Unknown End: Patient is a former quit again 04/23 Unknown smoker Recreational Drug Use Current Drug User Current Drug User - marijuana, occasionally, advised cessation 02/04/15 Allergies, Adverse Reactions, Alerts Description No Known Drug Allergies Medications Active Medications SIG Qnty Indications Ordering Provider Date Black Cohosh 1 by mouth every Teresa Yarbrough, 08/10/2017 540mg day MD Capsules Atorvastatin Calcium take 1 tablet 90tabs E78.2 Teresa Yarbrough, 2011 20mg once daily MD Tablets History Medications Omeprazole 1 by mouth [...] Code Status Date Vaccine Reaction Lot # [id number] Given 12/23/2012 Tdap (Adacel) Ages 7 And Above Only 41491 Given 10/08/2002 Immunization Td 7 Yrs Or Older 80308 Refused 04/01/2019 Shingrix (Shingles) Zoster AWARE CAN GET AT PHARMACY Vaccine HZV, Recombinant, Subunit, Adj 79391 Refused 04/01/2019 Fluzone Highdose Age 65 And Over Preservative & Antibiotic Free Q2039 Refused 11/29/2018 Flu Vaccine NOS Q2039 Refused 03/26/2018 Flu Vaccine NOS 28488 Refused 03/26/2018 Shingrix (Shingles) Zoster Vaccine HZV, Recombinant, Subunit, Adj 90977 Refused 08/10/2017 Influenza Virus Vaccine,Quadrivalent,Split,Prese rv Free, 0.5mL,Im [address] Refused 02/04/2015 Influenza Virus Vaccine,Quadrivalent,Split,Prese rv Free, 0.5mL,Im [address] Refused 07/14/2014 Influenza Virus Vaccine,Quadrivalent,Split,Prese rv Free, 0.5mL,Im Vital Signs Date Vital Result Comment 04/01/2019 2:02pm Weight 186.00 lb Heart Rate 60 /min BP Systolic 126 mmHg BP Diastolic 74 mmHg Respiratory Rate 14 /min Height 65.25 inches 5'5.25" BMI (Body Mass Index) 30.7 kg/m2 01/21/2019 4:13pm Body Temperature 97.5 F Weight 184.00 lb Heart Rate 63 /min BP Systolic 120 mmHg BP Diastolic 82 mmHg Respiratory Rate 18 /min Height 65.5 inches 5'5.50" O2 % BldC Oximetry 97 % ra BMI (Body Mass Index) 30.2 kg/m2 Results Test Acquired Date Facility Test [...] the kidneys. Procedures Date Code Description Status 04/01/2019 46774 Admin Patient Focused Health Risk Assessment Completed Instrument 02/12/2019 [id number] Mammogram Completed 01/14/2019 81267 Measure Blood Oxygen Level Single Determination Completed 10/14/2018 69529 Measure Blood Oxygen Level Single Determination Completed 02/08/2018 [id number] Mammogram Completed 02/27/2017 [id number] Bone Mineral Density Test Completed 01/28/2015 [id number] Bone Mineral Density Test Completed 01/27/2015 [id number] Mammogram Completed 10/08/2014 [id number] Colonoscopy Completed Medical Devices Description No Information Available Encounters Type Date Location Provider Dx Diagnosis Office Visit 01/21/2019 [facility] Teresa Yarbrough, R10.816 Epigastric abdominal 4:15p MD tenderness K57.33 Dvtrcli of lg int w/o perforation or abscess w bleeding E66.9 Obesity, unspecified Z68.30 Body mass index (BMI) 30.0-30.9, adult Office Visit 01/14/2019 11:30a [facility] Teresa Yarbrough MD R10.814 LEFT lower quadrant abdominal tenderness K57.33 Dvtrcli of lg int w/o perforation or abscess w bleeding K62.89 Other specified diseases of anus and rectum Z68.29 Body mass index (BMI) 29.0-29.9, adult Office Visit 11/29/2018 1:00p [facility] Teresa Yarbrough MD 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9 Obesity, unspecTeresa Marquez MD 11/29/2018 Z68.30 Body mass index (BMI) 30.0-30.9, adult Teresa Yarbrough MD 10/14/2018 M54.5 Low back pain Teresa Yarbrough MD 10/14/2018 M25.552 Pain in LEFT hip Teresa Yarbrough MD 10/14/2018 E66.9 Obesity, unspecified Teresa Yarbrough MD 10/14/2018 R05 Cough Teresa Yarbrough MD 10/14/2018 Z68.30 Body mass index (BMI) 30.0-30.9, adult Teresa Yarbrough MD Plan of Treatment Future Appointment(s):09/22/2019 2:00 pm - Schedule, Laboratory at [facility]2019 1:00 pm - Teresa Yarbrough MD at [facility]04/01/2019 - Teresa Yarbrough MDD48.0 Neoplasm of uncertain behavior of bone and articular cartilageComments: patient reports a painful xyphoidwonders if can be removed. referral to orthopedistReferral:True Zuluaga DR,Z01.411 Encounter for gynecological examination (general) (routine) with abnormal findingsComments:Well adult female. pap done with hpv testing in 2014, no reason to repeat today Immunizations UTD.discussed hep a, consider for travel abroadno reasons for pneumovax obviousAnnual flu vax is recommended tdap is current 2013Recommend Shingrix series. Discussed colon cancer screening.Annual Mammo.Bone density next in 03/06Annual exam recommended for addressing RHM issues. If develops any vaginal bleeding, needs evaluation. . Recommend 3 dairy servings per day OR 600mg calcium with vit d with meals.Encouraged healthy diet with meats simply prepared, fresh fruits and veg when able also simply prepared, whole grains, 3 dairies per day non fat. Consume sources of omega 3 healthy fats daily, such as almonds/walnuts/ground flax seed/olive oil/fish. Encouraged daily exercise 30 - 60 min daily. Encouraged at least 2 qrts water per day with more for sweaty exercise. [employer] 7-8 hours of sleep at night. Avoid tobacco. Limit alcohol to under 1 per day. Recommend periodic optho consultRecommend periodic dental consult Healthy lifestyle helps decrease your risk for certain illnesses.Follow up:next visitin 170 to 180 days for oc15 rtn fu nonfasting labs 5 days prior repeat epvenyzdqzxP64.2 Mixed hyperlipidemiaNew Labs:CPK, Scheduled: Comprehensive Met Panel-[facility], Scheduled: 09/22/19Lipid, Scheduled: Comments:high cholpatient is intermediate risk with new AHA 2018 guidelines LDL labs show a 30-50% reductionbaseline ldl over 190continue current meds. monitor for side effects of muscle aches or crampswe watch for liver effects with labsPlease call if you have any concerns.aspirin 81mg daily is also recommended, she declines --given alcohol use agree For lifestyle, we also recommend: Low fat ( under 30gm per day), low chol diet ( under 300mg per day chol)focus on lean meat, nonfat 1% dairy, increased veg and fruit, whole grains weight lossexercise build to at least 30min per day. Reviewed signs and symptoms of cardiovascular disease.M85.89 Other specified disorders of bone density and structure, mulComments:osteopenia. last dexa 2016, had numbers at -1.1, slight osteopenia range, but not severe enough to warrant medications. Recheck in 4 yr Counselled pt to consume either 3 dairy servings per dayor no more than calcium 600mg twice daily with meals, and enough vit d to get to goal of 40 to 85. Reviewed supplement options. Also regular weight bearing exercise is daapeibsmpsT60.0 Primary generalized (osteo) arthritisComments:osteoarthritis. Encourage pt to continue and active lifestyle with regular exercise, range of motion activities. May use analgesics as needed but should avoid maximum dosing and watch for stomach upset , be mindful of cardiovascular and kidney risks with intermodal customer service use of nsaids. Recommend weight loss, healthy diet, omega 3 fats in diet,good amounts of calcium/vit d as well.Latest research suggests glucosamine, omega 3 supplements and hyaluronic acid and prolotherapy do not help. Arthroscopy of joints delays joint replacement. Joint replacement may be done when moderate to severe arthritis is reached and it inhibits your ability to do things in life.Z87.891 Personal history of nicotine dependenceComments:Former smoker, not a candidate for lung cancer screening based on history Seek care for persistent cough, unexpected weight loss/fatigue, coughing up blood as these can be signs of lung tlmzfoS90.9 Vitamin D deficiency, unspecifiedComments:Pt with vit D deficiency on replacement, check levels with next labs. Continue replacement and recheck periodically. Be certain to take your vit d with your main meal that has meat/ fat/oil as this is fat soluble. New recommended goals are levels 40 - 85Z12.31 Encounter for screening mammogram for malignant neoplasm ofComments: Annual mammogram and clinical breast exam with monthly breast self exams discussed. Pt should call/come in if she has any changes in breast self exam or concerns. Advised pt that for those aged 50-74, USPSTF recommends mammo every other year , and breast self exam or clinical breast exam need to be decided individually. [employer] recommends for those age 55 [...] asks for annual mammogram and clinical breast exam.F12.29 Cannabis dependence with unspecified cannabis-induced disorderComments: Cautioned the intermodal customer service risks of use Marijuana intermodal customer service use for depression, anxiety , muscle weakness, cardiomyopathy, and other effects. Recommend complete cessation. she declines cessation at this timeF10.288 Alcohol dependence with other alcohol-induced disorderNew Labs:Gamma gt-RL, Scheduled: 09/22/19CBC with Auto Diff-fcmg, Scheduled: 09/22/19Comments:alcohol usepossible cause of fatiue and sleep issues recommend decrease to under 2 per day. continue to taper down to 1 per daylabs were in normal range. will check GGT with next labs. if struggling,there are meds and counselling we can do to help with this.campral, naltrexone/vivitrol, antabuse discussed.D12.6 Benign neoplasm of colon, unspecifiedComments:ho colitis on prior colonoscopy summer 2014referral to Dr Black as he recommended repeat colonosocptyin 5 years. also had hypdrplastic polypsReferral:Lisa Black, WotsgjdmoqfhjnzfH92.9 Obesity, unspecifiedComments:continue to work on diet, exercise, weight lossZ68.30 Body mass index (BMI) 30.0-30.9, adultComments:recommend reduced calorie intake, healthy eating and regular exercise for weight reduction Functional Status Description No Information Available Mental Status Description No Information Available Referrals Refer to Reason for Referral Status Appt True Vásquez DR 59 yo painful xyphoid, would like removed. [facility] [address] [place] [address] [phone] Lisa Black 59 yo had colonoscopy with colitis, hyperplastic Created polyps summer 2014, per DR Black due to recheck at 5 yr. Faxed all necessary paperwork needed for the to review and schedule the pt. KR 04/01 [address] [place] [address] [phone]
== END 2019-05-11 10:40 | disposition home or self-care (01) ==
LOC: UCCORT 09:18
DX: R10.13 Epigastric pain (principal)
CPT/HCPCS: 93005; 99212; A9270-GY; G0463